=== PATIENT | female | born 1985 | race African-American/Black ===

== ENCOUNTER 2016-08-23 01:32 | Outpatient (CLI) | payer BC, MEDICAID ==
[2016-08-23 02:13] LABS: APPEARANCE,URINE SLIGHTLY-CLOUDY; BILIRUBIN,URINE NEGATIVE (NEGATIVE); GLUCOSE, URINE NEGATIVE (NEGATIVE); KETONES,URINE NEGATIVE (NEGATIVE); LEUKOCYTE ESTERASE,URINE LARGE (NEGATIVE); NITRITE,URINE NEGATIVE (NEGATIVE); PROTEIN,URINE NEGATIVE (NEGATIVE); URINE SPECIFIC GRAVITY 1.012
[2016-08-23 02:35] LABS: URINE BARBITURATES SCREEN NEGATIVE; URINE METHADONE SCREEN NEGATIVE; URINE OPIATES LOW NEGATIVE; URINE PHENCYCLIDINE SCREEN NEGATIVE
--- NOTE | 2016-08-23 04:46 | L&D Admission Assessment ---
LD ADM ASMT Datetime Report Generated by CPN: 08/23/2016 04:45 PATIENT ASSESSMENT Assessment Type: Triage (08/23/2016 01:54:Kourtney Lattibeaudeir, RN) WEIGHT Weight (lb): 150 (08/23/2016 02:47:QS system process) Weight (kg): 68.2 (08/23/2016 02:47:QS system process) PAIN Pain Scale: 3 (08/23/2016 01:54:Kourtney Lattibeaudeir, RN) Pain Presence: Intermittent (08/23/2016 01:54:Kourtney Lattibeaudeir, RN) Pain Type: Contraction (08/23/2016 01:54:Kourtney Lattibeaudeir, RN) Pain Location: Abdomen (08/23/2016 01:54:Kourtney Lattibeaudeir, RN) Pain Related to Contraction: Yes (08/23/2016 01:54:Kourtney Lattibeaudeir, RN) CONTRACTIONS Frequency (min): 2-9 (08/23/2016 02:40:Kourtney Lattibeaudeir, RN) Frequency (min): 3-8 (08/23/2016 02:15:Kourtney Lattibeaudeir, RN) Frequency (min): every 5-7 mins per pt report. (08/23/2016 01:54:Kourtney Lattibeaudeir, RN) Duration (sec): 60-120 (08/23/2016 02:40:Kourtney Lattibeaudeir, RN) Duration (sec): 60-130 (08/23/2016 02:15:Kourtney Lattibeaudeir, RN) Quality: Moderate to Strong (08/23/2016 02:40:Kourtney Goddard RN) Quality: Moderate to Strong (08/23/2016 02:15:Kourtney Goddard RN) Resting Tone [place]: Relaxed (08/23/2016 02:40:Kourtney Beauchamptibchelita RN) Resting Tone [place]: Relaxed (08/23/2016 02:15:Kourtney Lattibchelita, RN) VAGINAL EXAM Dilatation (cm): 3.0 (08/23/2016 03:32:Kourtney Goddard RN) Dilatation (cm): 3.0 (08/23/2016 02:00:Kourtney Goddard RN) Effacement (%): 80 (08/23/2016 03:32:Kourtney Goddard RN) Effacement (%): 80 (08/23/2016 02:00:Kourtney Goddard RN) Station: -2 (08/23/2016 03:32:Kourtney Goddard RN) Station: -2 (08/23/2016 02:00:Kourtney Goddard RN) Membranes Status: Intact (08/23/2016 01:54:Kourtney Goddard RN) MAY'S SCORE May's Score Dilatation (cm): 3-4 cms (08/23/2016 01:54:Kourtney Goddard RN) May's Score Effacement (%): >80_ effaced (08/23/2016 01:54:Kourtney Goddard RN) May's Score Station: minus 2 (08/23/2016 01:54:Kourtney Goddard RN) May's Score Consistency: Medium (08/23/2016:54:Kourtney Goddard RN) May's Score Position: Posterior (08/23/2016 01:54:Kourtney Goddard RN) Total May's Score: 7 (08/23/2016:54:QS system process) May's Score Text: 5-8 = Small percentage of induction failure (08/23/2016 01:54:QS system process) NEURO Level of Consciousness: Fully Conscious (08/23/2016 01:54:Kourtney Goddard RN) DTR's/Clonus: DTRs 2+; No Clonus (08/23/2016 01:54:Kourtney Goddard RN) Headache: Denies (08/23/2016 01:54:Kourtney Goddard RN) Dizziness: No (08/23/2016 01:54:Kourtney Goddard RN) Blurred Vision: Pt states she had blurred vision yesterday but not right now. (08/23/2016 01:54:Kourtney Goddard RN) Extremity Numbness/Tingling : Pt states she has some numbness in her right leg from above the knee to just below it. (08/23/2016 01:54:Kourtney Goddard RN) Extremity Movement: Full Range of Motion (08/23/2016 01:54:Kourtney Goddard RN) CARDIOVASCULAR Heart Rhythm: Regular (08/23/2016 01:54:Kourtney Goddard RN) Nailbeds: [place] (08/23/2016 01:54:Kourtney Goddard RN) Capillary Refill: Less than 3 Seconds (08/23/2016 01:54:Kourtney Goddard RN) Lower Extremities Edema: None (08/23/2016 01:54:Kourtney Goddard RN) Lower Extremities Edema Degree: None (08/23/2016 01:54:Kourtney Goddard RN) Upper Extremities Edema: None (08/23/2016 01:54:Kourtney Goddard RN) Upper Extremities Edema Degree: None (08/23/2016 01:54:Kourtney Goddard RN) Facial Edema: None (08/23/2016 01:54:Kourtney Goddard RN) RESPIRATORY Respiratory Effort: Unlabored; Regular Rhythm; Equal Expansion (08/23/2016 01:54:Kourtney Lattibeaudeir, RN) Breath Sounds, Left: Clear and Equal (08/23/2016 01:54:Kourtney Lattibeaudeir, RN) Breath Sounds, Right: Clear and Equal (08/23/2016 01:54:Kourtney Lattibeaudeir, RN) Cough Productivity: None (08/23/2016 01:54:Kourtney Lattibeaudeir, RN) GASTROINTESTINAL Nausea/Vomiting: Denies (08/23/2016 01:54:Kourtney Lattibeaudeir, RN) Bowel Patterns: Diarrhea (08/23/2016 01:54:Kourtney Lattibeaudeir, RN) Diet Type: Regular diet (08/23/2016 01:54:Kourtney Lattibeaudeir, RN) GENITOURINARY Bladder: Nondistended (08/23/2016 01:54:Kourtney Goddard RN) Frequency of Urination: No (08/23/2016 01:54:Kourtney Goddard RN) Urination Burning: No (08/23/2016 01:54:Kourtney Goddard RN) CVA Tenderness: No (08/23/2016 01:54:Kourtney Goddard RN) Vaginal Bleeding: None (08/23/2016 01:54:Kourtney Goddard RN) Vaginal Discharge Amount: None (08/23/2016 01:54:Kourtney Goddard RN) Vaginal Discharge Color: N/A (08/23/2016 01:54:Kourtney Goddard RN) Vaginal Discharge Odor: Non-Odorous (08/23/2016 01:54:Kourtney Goddard RN) Vaginal Discharge Character: None (08/23/2016 01:54:Kourtney Goddard RN) INTEGUMENTARY Skin Color: Normal for Race (08/23/2016 01:54:Kourtney Goddard RN) Skin Temperature: Warm (08/23/2016 01:54:Kourtney Goddard RN) Skin Moisture: Dry (08/23/2016 01:54:Kourtney Goddard RN) Surgical Scars: none (08/23/2016 01:54:Kourtney Goddard RN) PASQUALE SKIN ASSESSMENT Pasquale Scale Sensory Perception: No Impairment- Responds to verbal commands. Has no sensory deficit which would limit ability to feel or voice pain or discomfort (08/23/2016 01:54:Kourtney Goddard RN) Pasquale Scale Moisture: Rarely Moist- Skin is usually dry. Linen only requires changing at routine intervals (08/23/2016 01:54:Kourtney Goddard RN) Pasquale Scale Activity: Walks Frequently- Walks outside the room at least twice a day and inside room at least every 2 hours during the day. (08/23/2016 01:54:Kourtney Goddard RN) Pasquale Scale Mobility: No Limitations- Makes major and frequent changes in position without assistance (08/23/2016 01:54:Kourtney Goddard RN) Pasquale Scale Nutrition: Adequate- Eats over half of most meals. Eats a total of 4 servings of protein (meat, dairy products) each day. Occasionally will refuse a meal but will usually take a supplement if offered OR is on a tube feeding or TPN regimen which probably meets most of nutritional needs (08/23/2016 01:54:Kourtney Goddard RN) Pasquale Scale Friction and Shear: No Apparent Problem- Moves in bed and in chair independently and has sufficient muscle strength to lift up completely during move. Maintains good position in bed or chair at all times (08/23/2016 01:54:Kourtney Goddard RN) Pasquale Scale Total: 22 (08/23/2016 01:54:QS system process) Pasquale Scale Risk: No Risk of Pressure Ulcer Noted at this Time (08/23/2016 01:54:QS system process) SUPPORT Family Support: Family supportive (08/23/2016 01:54:Kourtney Lattibeaudeir, RN) Emotional State: Calm/Relaxed (08/23/2016 01:54:Kourtney Lattibeaudeir, RN) SAFETY [place] Within Reach: Yes (08/23/2016 01:54:Kourtney Lattibeaudeir, RN) Side Rails Up: Yes (08/23/2016 01:54:Kourtney Lattibeaudeir, RN) Bed Wheels Locked: Yes (08/23/2016 01:54:Kourtney Lattibeaudeir, RN) Arm Bands Present: Yes (08/23/2016 01:54:Kourtney Lattibeaudeir, RN) Isolation: [place] (08/23/2016 01:54:Kourtney Lattibeaudeir, RN) FALL SCREEN Fall Risk History of Falling: (0) No (08/23/2016 01:54:Kourtney Goddard RN) Fall Risk Secondary Diagnosis: (0) No (08/23/2016 01:54:Kourtney Goddard RN) Fall Risk Ambulatory Aid: (0) None/Bedrest/Wheelchair/Nurse Assist (08/23/2016 01:54:Kourtney Goddard RN) Fall Risk IV Therapy: (0) No (08/23/2016 01:54:Kourtney Goddard RN) Fall Risk Gait: (0) Normal/Bedrest/Immobile (08/23/2016 01:54:Kourtney Goddard RN) Fall Risk Mental Status: (0) Oriented to Own Ability (08/23/2016 01:54:Kourtney Goddard RN) Fall Risk Score: 0 (08/23/2016 01:54:QS system process) Fall Risk Score Definition: No Risk: No action required (08/23/2016 01:54:QS system process) BABY A FHR Baseline Rate (bpm) Baby A: 135 (08/23/2016 02:40:Kourtney Goddard RN) FHR Baseline Rate (bpm) Baby A: 135 (08/23/2016 02:15:Kourtney Goddard RN) Variability Baby A: Moderate 6-25 bpm (08/23/2016 02:40:Kourtney Goddard RN) Variability Baby A: Moderate 6-25 bpm (08/23/2016 02:15:Kourtney Goddard RN) Accelerations Baby A: 15X15 (08/23/2016 02:40:Kourtney Goddard RN)
--- NOTE | 2016-08-23 04:46 | Antepartum Discharge Summary ---
Antepartum DC Datetime Report Generated by CPN: 08/23/2016 04:45 DIET/ACTIVITY/RESTRICTIONS Diet: Regular (08/23/2016 03:49:Kourtney Lattibeaudeir, RN) Activity: Normal Activity (08/23/2016 03:49:Kourtney Lattibeaudeir, RN) TEACHING/INSTRUCTIONS/REFERRALS Instructions Given To: Patient (08/23/2016 03:49:Kourtney Lattibeaudeir, RN) Instructions Understood: Patient Verbalized Understanding; Support Person Verbalized Understanding (08/23/2016 03:49:Kourtney Goddard RN) Referrals: None (08/23/2016 03:49:Kourtney Goddard RN) Educational Materials- Other: labor process and kick count care notes. (08/23/2016 03:49:Kourtney Goddard RN) DISCHARGE INFORMATION Discharged AMA: No (08/23/2016 03:49:Kourtney Goddard RN) Discharge Date/Time: 08/23/2016 03:49 (08/23/2016 03:49:Kourtney Goddard RN) Discharged To: Home (08/23/2016 03:49:Kourtney Goddard RN) Discharge Provider Name: Dr. Krishnamurthy (08/23/2016 03:49:Kourtney Goddard RN) Accompanied By: Family member (08/23/2016 03:49:Kourtney Goddard RN) Discharge Method: Ambulatory (08/23/2016 03:49:Kourtney Goddard RN) Condition: Stable (08/23/2016 03:49:Kourtney Goddard RN) FOLLOW UP INFORMATION Follow Up With: [facility] (08/23/2016 03:49:Kourtney Goddard RN) Follow Up On: As Scheduled (08/23/2016 03:49:Kourtney Goddard RN) Follow Up Phone Number: [facility] - (08/23/2016 03:49:Kourtney Goddard RN)
--- NOTE | 2016-08-23 04:46 | L&D Discharge Summary ---
OB Discharge Summary Datetime Report Generated by CPN: 08/23/2016 04:45 DISCHARGE DIAGNOSIS Diagnosis/Symptoms: False Labor Gestation: 38.0 Number of Babies in Womb: 1 Parity: 1 DIET/ACTIVITY/RESTRICTIONS Diet: Regular Activity: Normal Activity TEACHING/INSTRUCTIONS/REFERRALS Instructions Given To: Patient Instructions Understood: Patient Verbalized Understanding; Support Person Verbalized Understanding Referrals: None Educational Materials- Other: labor process and kick count care notes. DISCHARGE INFORMATION Discharged AMA: No Discharge Date/Time: 08/23/2016 03:49 Discharged To: Home Discharge Provider Name: Krishnamurthy Accompanied By: Family member Discharge Method: Ambulatory Condition: Stable FOLLOW UP INFORMATION Follow Up With: [facility] Follow Up On: As Scheduled Follow Up Phone Number: [facility] - Comments: Patient educated on dehydration in . Patient advised to drink 3-4 pitchers of water per day
--- NOTE | 2016-08-23 04:46 | L&D General Admission ---
General Admit Datetime Report Generated by CPN: 08/23/2016 04:45 INFORMATION Para: 1 (08/23/2016 03:49:Kourtney Lattibeaudeir, RN) Baby, Number in Womb: 1 (08/23/2016 03:49:Kourtney Lattibeaudeir, RN) CARE Height (in): 64 (08/23/2016 02:47:QS system process) ALLERGIES Medication Allergies: No Known Allergies (08/23/2016) (08/23/2016 02:09:QS system process)
--- NOTE | 2016-08-23 04:46 | L&D Current Admission ---
Current Admit Datetime Report Generated by CPN: 08/23/2016 04:45 ADMISSION INFORMATION Chief Complaint: Contractions (08/23/2016 01:54:FRANCISCO Randhawa
--- NOTE | 2016-08-23 04:46 | L&D Flow Sheet ---
LD Flowsheet Datetime Report Generated by CPN: 08/23/2016 04:45 Datetime: 08/23/2016 03:49 Communication Additional Nursing Comments: Pt ambulated off unit accompanied by family member. (Kourtney Lattibeaudeir, RN) Datetime: 08/23/2016 03:41 Teaching Instructional Method: Verbal; Written; Patient Instructed; Family/Support Person Instructed (Kourtney Goddard RN) Plan of Care: Labor (Kourtney Goddard RN) Related: Common Discomforts of (Kourtney Goddard RN) Teaching Comments: Patient given labor process and kick count care notes. Pt advised to keep appt as scheduled on in office. Pt also advised to f/u with L_D or physician's office as needed. Pt verbalized understanding and denies any questions. (Kourtney Goddard RN) Datetime: 08/23/2016 03:35 Communication Comments: Informed Dr. Krishnamurthy of repeat SVE. Received orders to discharge pt home. May offer patient Vistaril 50 mg PO prior to discharge. Keep appts as scheduled and f/u in L_D or physician's office as needed. (Kourtney Goddard RN) Datetime: 08/23/2016 03:32 Vaginal Exam Dilatation (cm): 3.0 (Kourtney Goddard RN) Effacement (%): 80 (Kourtney Goddard RN) Station: -2 (Kourtney Goddard RN) Exam by: Damon Goddard RN (Kourtney Goddard RN) Datetime: 08/23/2016 02:40 Uterine Activity Monitor Mode: External (Kourtney Lattibeaudeir, RN) Frequency (min): 2-9 (Kourtney Lattibeaudeir, RN) Quality: Moderate to Strong (Kourtney Lattibeaudeir, RN) Duration (sec): 60-120 (Kourtney Lattibeaudeir, RN) Resting Tone (Palpate): Relaxed (Kourtney Lattibeaudeir, RN) Assessment A Monitor Mode: External US (Kourtney Lattibeaudeir, RN) FHR Baseline Rate : 135 (Kourtney Lattibeaudeir, RN) Variability: Moderate 6-25 bpm (Kourtney Lattibeaudeir, RN) Accelerations: 15X15 (Kourtney Lattibeaudeir, RN) Comments: Monitors removed for ambulation. Pt advised to stay on 2nd floor. Advised her to ambulate until approx 0330. Will re-check SVE at that time. Pt verbalized understanding. (Kourtney Lattibeaudeir, RN) Datetime: 08/23/2016 02:27 Communication Comments: Informed Dr. Krishnamurthy of SVE, pt complaint of contractions, and urine results. (Kourtney Lattibeaudeir, RN) Datetime: 08/23/2016 02:15 Uterine Activity Monitor Mode: External (Kourtney Quynhtibchelita, RN) Frequency (min): 3-8 (Kourtney Goddard, RN) Quality: Moderate to Strong (Kourtney Lattibeaudeir, RN) Duration (sec): 60-130 (Kourtney Lattibeaudeir, RN) Resting Tone (Palpate): Relaxed (Kourtney Lattibeaudeir, RN) Assessment A Monitor Mode: External US (Kourtney Lattibeaudeir, RN) FHR Baseline Rate : 135 (Kourtney Lattibeaudeir, RN) Variability: Moderate 6-25 bpm (Kourtney Lattibeaudeir, RN) Datetime: 08/23/2016 02:00 Vaginal Exam Dilatation (cm): 3.0 (Kourtney Goddard, RN) Effacement (%): 80 (Kourtney Goddard RN) Station: -2 (Kourtney Goddard RN) Exam by: Damon Goddard RN (Kourtney Goddard, RN) Vaginal Exam Comments: Ballot[place] (Kourtney Goddard, RN) Datetime: 08/23/2016 01:54 Vital Signs Stage of : Antepartum (Kourtney Goddard, RN) NBP Sys/Hallie/Mean (mmHg): 116 (QS system process) : 82 (QS system process) : 94 (QS system process) Pulse: 75 (QS system process) Frequency (min): every 5-7 mins per pt report. (Kourtney Goddard, RN) Pain Pain Scale: 3 (Kourtney Lattibeaudeir, RN) Pain Presence: Intermittent (Kourtney Lattibeaudeir, RN) Pain Type: Contraction (Kourtney Lattibeaudeir, RN) Pain Location: Abdomen (Kourtney Lattibeaudeir, RN) Pain Coping: Breathing Through Contractions (Kourtney Lattibeaudeir, RN) Membrane Status: Intact (Kourtney Lattibeaudeir, RN) Vaginal Bleeding: None (Kourtney Lattibeaudeir, RN) Foster's Score Dilatation (cm): 3-4 cms (Kourtney Lattibeaudeir, RN) Effacement: >80_ effaced (Kourtney Lattibeaudeir, RN) Station: minus 2 (Kourtney Lattibeaudeir, RN) Consistency: Medium (Kourtney Lattibeaudeir, RN) Position: Posterior (Kourtney Lattibeaudeir, RN) Total Foster's Score: 7 (QS system process) : 5-8 = Small percentage of induction failure (QS system process) Maternal Assessment Level of Consciousness: Fully Conscious (Kourtney Goddard RN) DTR's/Clonus: DTRs 2+; No Clonus (Kourtney Goddard RN) Headache: Denies (Kourtney Goddard RN) Breath Sounds, Left: Clear and Equal (Kourtney Goddard RN) Breath Sounds, Right: Clear and Equal (Kourtney Goddard RN) Nausea/Vomiting: Denies (Kourtney Goddard RN) LaborFlag: Antepartum (QS system process)
--- NOTE | 2016-08-26 10:01 | Non Stress Test Report ---
Non Stress Test Datetime Report Generated by CPN: 08/26/2016 10:01 DEMOGRAPHIC Test Number: 2 EGA NST: 38.1 EGA NST: 33.4 INDICATION Indication for Study: Ordered by Provider Indication for Study: Other Indication for Study (NST) Other: Labor Check MONITORING Monitor Explained: Monitor Explained; Test Explained; Patient Verbalized Understanding Monitor Explained: Monitor Explained; Test Explained; Patient Verbalized Understanding Time on Monitor: 08/23/2016 01:52 Time on Monitor: 07/22/2016 15:16 Time off Monitor: 08/23/2016 02:40 Time off Monitor: 07/22/2016 17:06 NST Duration: 48 NST Duration: 110 NST INTERVENTIONS NST Interventions: PO Hydration; Reposition Patient NST Interventions: PO Hydration Physician Notified NST: Dr. Krishnamurthy Physician Notified NST: Dr. Lubin BABY A: [id number] BABY A Movement : Present Movement : Present Contraction Frequency : 2-9 Contraction Frequency : irregular FHR Baseline : 135 FHR Baseline : 135 Accelerations : 15X15 Accelerations : 15X15 Decelerations : None Variability : Moderate 6-25bpm Variability : Moderate 6-25bpm NST Review: Meets Criteria for Reactive NST NST Review: Meets Criteria for Reactive NST NST Review and Verified By : MIREILLE Miller NST Review and Verified By : Jorge Gordon RN NST Results: Reactive NST Results: Reactive NST REPORT Report Trigger: Send Report
== END 2016-08-23 03:49 | disposition home or self-care (01) ==
LOC: LC 01:32
PROVIDERS: ATTEND Obstetrics & Gynecology
PROC: 4A1HXCZ Monitoring of Products of Conception, Cardiac Rate, External Approach (ICD-10-PCS; principal; 2016-08-23)
DX: O47.1 False labor at or after 37 completed weeks of gestation (principal); Z3A.38 38 weeks gestation of pregnancy
CPT/HCPCS: 59025; 80307; 81005

== ENCOUNTER 2016-08-26 10:06 | Inpatient (IN) | payer BC, MEDICAID ==
[2016-08-26 10:50] LABS: APPEARANCE,URINE SLIGHTLY-CLOUDY; BILIRUBIN,URINE NEGATIVE (NEGATIVE); GLUCOSE, URINE NEGATIVE (NEGATIVE); KETONES,URINE TRACE mg/dL (NEGATIVE); LEUKOCYTE ESTERASE,URINE LARGE (NEGATIVE); NITRITE,URINE NEGATIVE (NEGATIVE); PROTEIN,URINE NEGATIVE (NEGATIVE); URINE SPECIFIC GRAVITY 1.004; UROBILINOGEN,URINE NEGATIVE mg/dL (<2.0)
[2016-08-26 10:59] LABS: AMNISURE (ROM) NEGATIVE (NEGATIVE)
[2016-08-26 11:05] LABS: URINE BARBITURATES SCREEN NEGATIVE; URINE METHADONE SCREEN NEGATIVE; URINE OPIATES LOW NEGATIVE; URINE PHENCYCLIDINE SCREEN NEGATIVE
--- NOTE | 2016-08-26 12:01 | L&D Flow Sheet ---
LD Flowsheet Datetime Report Generated by CPN: 08/26/2016 12:00 Datetime: 08/26/2016 11:58 NBP Sys/Hallie/Mean (mmHg): 103 (QS system process) : 76 (QS system process) : 86 (QS system process) Pulse: 85 (QS system process) LaborFlag: Antepartum (QS system process) Datetime: 08/26/2016 11:57 Contraction Comments: TOCO referenced. (Nevin Gordon, RN) Datetime: 08/26/2016 11:10 Comments: Monitors removed. Pt. up to ambulate per H. Jorge L, CNM. (Nevin Gordon, RN) Datetime: 08/26/2016 11:06 NBP Sys/Hallie/Mean (mmHg): 99 (QS system process) : 66 (QS system process) : 78 (QS system process) Pulse: 78 (QS system process) LaborFlag: Antepartum (QS system process) Datetime: 08/26/2016 11:01 Monitor Mode: External; Palpation (Nevin Gordon, RN) Frequency (min): 2-7 (Nevin Gordon RN) Quality: Mild (Nevin Gordon RN) Duration (sec): 60-80 (Nevin Gordon RN) Resting Tone (Palpate): Relaxed (Nevin Gordon RN) Monitor Mode: External US (Nevin Gordon RN) FHR Baseline Rate : 130 (Nevin Gordon RN) Variability: Moderate 6-25 bpm (Nevin Gordon RN) Accelerations: 15X15 (Nevin Gordon RN) Decelerations: Early; Variable (Nevin Gordon RN) Communication: Provider Orders Received; Call/Page Placed to Provider (Nevin Grodon RN) Provider Notified (Name): Lucian Coats CNM (Nevin Gordon RN) Communication Comments: Notified of fhts, ctx, labs, and v/s. Received orders to ambulate for 1 hour and recheck cervix. (Nevin Gordon RN) Datetime: 08/26/2016 10:33 Dilatation (cm): 3.0 (Nevin Gordon RN) Effacement (%): 80 (Nevin Gordon RN) Station: -1 (Nevin Gordon RN) Exam by: Jorge Gordon RN (Nevin Gordon RN) Datetime: 08/26/2016 10:31 NBP Sys/Hallie/Mean (mmHg): 109 (QS system process) : 77 (QS system process) : 88 (QS system process) Pulse: 77 (QS system process) LaborFlag: Antepartum (QS system process) Datetime: 08/26/2016 10:29 Temperature (F): 98.1 (Nevin Gordon, RN) Temperature (C): 36.7 (QS system process) LaborFlag: Antepartum (QS system process) Datetime: 08/26/2016 10:28 Comments: Monitors applied, explained to pt. (Nevin Gordon, RN) Patient Position/Activity: Right Lateral (Nevin Gorodn, RN) Datetime: 08/26/2016 10:16 Frequency (min): q 6-7 min (Nevin Gordon RN) Pain Scale: 4 (Nevin Gordon RN) Pain Presence: Intermittent (Nevin Gordon RN) Pain Type: Contraction (Nevin Gordon RN) Pain Location: Abdomen (Nevin Gordon RN) Pain Goal: 0 (Nevin Gordon RN) Pain Coping: Talking Through Contractions (Nevin Gordon RN) Vaginal Bleeding: Normal Show (Nevin Gordon RN) Level of Consciousness: Fully Conscious (Nevin Gordon RN) DTR's/Clonus: DTRs 2+; No Clonus (Nevin Gordon RN) Headache: Denies (Nevin Gordon RN) Breath Sounds, Left: Clear and Equal (Nevin Gordon RN) Breath Sounds, Right: Clear and Equal (Nevin Gordon RN) Nausea/Vomiting: Denies (Nevin Gordon RN) RUQ Epigastric Pain: Denies (Nevin Gordon RN) LaborFlag: Antepartum (QS system process)
[2016-08-26] MEDS ORDERED: RINGERS SOLUTION,LACTATED 1,000 ML IV ONE (12:25)
[2016-08-26 13:44] LABS: ABSOLUTE EOSINOPHILS # (AUTO) 0.1 10^3/uL (0.0-0.6); ABSOLUTE LYMPHOCYTES (AUTO) 1.6 10^3/uL (0.5-4.7); ABSOLUTE MONOCYTES (AUTO) 0.7 10^3/uL (0.1-1.4); ABSOLUTE NEUT (AUTO) 6.7 10^3/uL (1.7-8.2); BASOPHILS % (AUTO) 0.3 % (0-2); EOSINOPHILS % (AUTO) 0.6 % (0-6); HEMOGLOBIN 11.8 g/dL (12.0-15.5); HGB HCT DIFFERENCE -0.6; LYMPHOCYTES % (AUTO) 17.6 % (13-45); MEAN CORPUSCULAR HEMOGLOBIN 29.2 pg (27.0-33.4); MEAN CORPUSCULAR HGB CONC 32.8 g/dL (32.0-36.0); MEAN CORPUSCULAR VOLUME 89 fl (80-97); RED BLOOD COUNT 4.05 10^6/uL (3.72-5.28); RED CELL DISTRIBUTION WIDTH 14.9 % (11.5-14.0); SEGMENTED NEUTROPHILS % (AUTO) 73.5 % (42-78); WHITE BLOOD COUNT 9.2 10^3/uL (4.0-10.5)
[2016-08-26 13:46] LABS: PLATELET ESTIMATE 108 10^3/uL (150-450)
--- NOTE | 2016-08-26 14:01 | L&D Flow Sheet ---
LD Flowsheet Datetime Report Generated by CPN: 08/26/2016 14:00 Datetime: 08/26/2016 13:33 Patient Position/Activity: Right Lateral (Nevin Gordon RN) Communication: RN at Bedside (Nevin Gordon, FABRIZIO) Datetime: 08/26/2016 13:30 Monitor Mode: External; Palpation (Nevin Gordon, RN) Frequency (min): 2-6 (Nevin Gordon RN) Quality: Mild (Nevin Gordon RN) Duration (sec): 50-90 (Nevin Gordon, RN) Resting Tone (Palpate): Relaxed (Nevin Gordon, RN) Monitor Mode: External US (Nevin Gordon, RN) FHR Baseline Rate : 135 (Nevin Gordon, RN) Variability: Moderate 6-25 bpm (Nevin Gordon, RN) Accelerations: 15X15 (Nevin Gordon, RN) Decelerations: Early; Variable (Nevin Gordon, RN) Datetime: 08/26/2016 13:00 Monitor Mode: External; Palpation (Nevin Gordon, RN) Frequency (min): 3-6 (Nevin Gordon, RN) Quality: Mild (Nevin Gordon, RN) Duration (sec): 40-80 (Nevin Gordon, RN) Resting Tone (Palpate): Relaxed (Nevin Gordon, RN) Monitor Mode: External US (Nevin Gordon, RN) FHR Baseline Rate : 135 (Nevin Gordon, RN) Variability: Moderate 6-25 bpm (Nevin Gordon, RN) Accelerations: 15X15 (Nevin Gordon, RN) Decelerations: Variable (Nevin Gordon, RN) Datetime: 08/26/2016 12:41 IV/Blood Work: IV Started (Sandra Jones, FABRIZIO) Datetime: 08/26/2016 12:29 Monitor Mode: External; Palpation (Nevin Gordon, RN) Frequency (min): 2-7 (Nevin Gordon, RN) Quality: Mild (Nevin Gordon, RN) Duration (sec): 40-80 (Nevin Gordon, RN) Resting Tone (Palpate): Relaxed (Nevin Gordon, RN) Monitor Mode: External US (Nevin Gordon, RN) FHR Baseline Rate : 135 (Nevin Gordon, RN) Variability: Moderate 6-25 bpm (Nevin Gordon, RN) Accelerations: 15X15 (Nevin Gordon, RN) Decelerations: Variable (Nevinelizabeth Gordon, RN) Datetime: 08/26/2016 12:03 Communication: Provider Orders Received; Call/Page Placed to Provider (Sandra Jones RN) Provider Notified (Name): Dr. Fuentes (Sandra Jones RN) Communication Comments: Notified of fhts, ctx, labs, v/s, and SVE. Received orders to admit to L_D. (Sandra Jones RN) Datetime: 08/26/2016 12:01 Dilatation (cm): 3.5 (Sandra Jones RN) Effacement (%): 80 (Sandra Jones RN) Station: -1 (Sandra Jones RN) Exam by: Jorge Gordon RN (Sandra Jones, FABRIZIO)
[2016-08-26] MEDS ORDERED: LIDOCAINE 1% INJ-PF (10 MG/ML) 30 ML SDV ONE (14:20)
[2016-08-26] MEDS ORDERED: MISOPROSTOL 0.2 MG TABLET ONE (14:20)
[2016-08-26] MEDS ORDERED: OXYTOCIN/NORMAL SALINE 0 UNIT/0 ML RTUINJ ONE (14:20)
[2016-08-26] MEDS ORDERED: FENTANYL CITRATE INJ/PF 100 MCG/2 ML AMPUL ONE ×2 (15:17→21:02)
[2016-08-26] MEDS ORDERED: FENTANYL/BUPIVACAINE/NS/PF 200 MCG/100 ML RTUINJ EPI ONE (15:17)
[2016-08-26] MEDS ORDERED: PHENYLEPHRINE HCL INJ/PF 10 MG/1 ML SDV ONE (15:17)
[2016-08-26] MEDS ORDERED: EPHEDRINE SULFATE INJ 50 MG/1 ML AMPULE ONE (15:17)
[2016-08-26] MEDS ORDERED: BUPIVACAINE HCL 0.25 % INJ/PF (2.5 MG/1 ML) 30 ML VIAL ONE (15:18)
--- NOTE | 2016-08-26 16:01 | L&D Flow Sheet ---
LD Flowsheet Datetime Report Generated by CPN: 08/26/2016 16:00 Datetime: 08/26/2016 15:59 NBP Sys/Hallie/Mean (mmHg): 110 (QS system process) : 71 (QS system process) : 85 (QS system process) Pulse: 98 (QS system process) Epidural Procedure: Loading Dose (Nevin Gordon RN) LaborFlag: Antepartum (QS system process) Datetime: 08/26/2016 15:58 NBP Sys/Hallie/Mean (mmHg): 113 (QS system process) NBP Sys/Hallie/Mean (mmHg): 116 (QS system process) : 74 (QS system process) : 75 (QS system process) : 88 (QS system process) : 90 (QS system process) Pulse: 94 (QS system process) Pulse: 93 (QS system process) Pulse: 91 (QS system process) SpO2 (%): 100 (QS system process) LaborFlag: Antepartum (QS system process) Datetime: 08/26/2016 15:57 Epidural Procedure: Cath Placed (Nevin Gordon RN) Epidural Procedure: Test Dose (Nevin Gordon RN) Datetime: 08/26/2016 15:53 Pulse: 92 (QS system process) SpO2 (%): 100 (QS system process) Procedure Verify: Correct Patient Identity; Correct Side and Site are Marked; Accurate Procedure Consent Form; Agreement on Procedure to be Done; Correct Patient Position (Nevin Gordon RN) Anesthesia Plans: Epidural (Nevin Gordon RN) LaborFlag: Antepartum (QS system process) Datetime: 08/26/2016 15:47 Pulse: 88 (QS system process) SpO2 (%): 100 (QS system process) LaborFlag: Antepartum (QS system process) Datetime: 08/26/2016 15:46 Contraction Comments: TOCO referenced. (Nevin Gordon, RN) Datetime: 08/26/2016 15:42 Pulse: 89 (QS system process) SpO2 (%): 100 (QS system process) LaborFlag: Antepartum (QS system process) Datetime: 08/26/2016 15:39 IV/Blood Work: New IV Bag Hung (Nevin Gordon, RN) Datetime: 08/26/2016 15:37 Pulse: 95 (QS system process) SpO2 (%): 100 (QS system process) Communication: Call/Page Placed to Provider (Nevin Gordon RN) Provider Notified (Name): Dr Knightshed (Nevin Gordon RN) Communication Comments: Notified of pt. request for epidural. (Nevin Gordon RN) LaborFlag: Antepartum (QS system process) Datetime: 08/26/2016 15:36 Communication Comments: Call placed to Dr Nunez to notify of pt request for epidural. (Della Sahni RN) Datetime: 08/26/2016 15:30 Monitor Mode: External; Palpation (Nevin Gordon RN) Frequency (min): 3-7 (Nevin Gordon RN) Quality: Moderate (Nevin Gordon RN) Duration (sec): 80-110 (Nevin Gordon RN) Resting Tone (Palpate): Relaxed (Nevin Gordon RN) Monitor Mode: External US (Nevin Gordon RN) FHR Baseline Rate : 145 (Nevin Gordon RN) Variability: Moderate 6-25 bpm (Nevin Gordon RN) Accelerations: 15X15 (Nevin Gordon RN) Decelerations: Early; Variable (Nevin Gordon RN) Pain Scale: 4 (Nevin Gordon RN) Pain Presence: Intermittent (Nevin Gordon RN) Pain Type: Contraction (Nevin Gordon RN) Pain Location: Abdomen (Nevin Gordon RN) Pain Goal: 0 (Nevin Gordon RN) Pain Assessment Comments: Epidural requested. (Nevin Gordon RN) LaborFlag: Antepartum (QS system process) Datetime: 08/26/2016 15:00 Monitor Mode: External; Palpation (Nevin Gordon, RN) Frequency (min): 5-7 (Nevin Gordon, RN) Quality: Moderate (Nevin Gordon, RN) Duration (sec): 60-80 (Nevin Gordon, RN) Resting Tone (Palpate): Relaxed (Nevin Gordon, RN) Monitor Mode: External US (Nevin Gordon, RN) FHR Baseline Rate : 140 (Nevin Gordon, RN) Variability: Moderate 6-25 bpm (Nevin Gordon, RN) Accelerations: 15X15 (Nevin Gordon, RN) Decelerations: Early; Variable (Nevin Gordon, RN) Datetime: 08/26/2016 14:30 Monitor Mode: External; Palpation (Nevin Gordon, RN) Frequency (min): 2-7 (Nevin Gordon, RN) Quality: Moderate (Nevin Gordon, RN) Duration (sec): 60-90 (Nevin Gordon, RN) Resting Tone (Palpate): Relaxed (Nevin Gordon, RN) Monitor Mode: External US (Nevin Gordon, RN) FHR Baseline Rate : 135 (Nevin Gordon, RN) Variability: Moderate 6-25 bpm (Nevin Gordon, RN) Accelerations: 15X15 (Nevin Gordon, RN) Decelerations: Early; Variable (Nevin Gordon, RN) Datetime: 08/26/2016 14:13 Dilatation (cm): 5.0 (Nevin Gordon RN) Exam by: Dr. Fuentes (Nevin Gordon RN) Membrane Status: Ruptured (Nevin Gordon RN) Membranes Ruptured Date/Time: 08/26/2016 14:13 (Nevin Gordon RN) Membranes Rupture Method: Artificial (Nevin Gordon RN) Amniotic Fluid Color: Clear (Nevin Gordon RN) Amniotic Fluid Amount: Small (Nevin Gordon RN) Amniotic Fluid Odor: Normal (Nevin Gordon RN) Datetime: 08/26/2016 14:08 I/O Interventions: Up to BR (Nevin Gordon RN) Datetime: 08/26/2016 14:00 Monitor Mode: External; Palpation (Nevin Gordon RN) Frequency (min): 4-5 (Nevin Gordon RN) Quality: Mild/Moderate (Nevin Gordon RN) Duration (sec): 60-90 (Nevin Gordon RN) Resting Tone (Palpate): Relaxed (Nevin Gordon RN) Monitor Mode: External US (Nevin Gordon RN) FHR Baseline Rate : 135 (Nevin Gordon RN) Variability: Moderate 6-25 bpm (Nevin Gordon RN) Accelerations: 15X15 (Nevin Gordon RN) Decelerations: Early; Variable (Nevin Gordon RN)
[2016-08-26] MEDS ORDERED: OXYTOCIN/NORMAL SALINE 20 UNIT/1,000 ML RTUINJ ONE (16:29)
[2016-08-26] MEDS ORDERED: OXYTOCIN/NORMAL SALINE 1,000 ML IV PRN ×2 (16:33→19:47)
[2016-08-26] MEDS: RINGERS SOLUTION,LACTATED 1,000 ML IV PRN ×2 (16:52→16:53)
--- NOTE | 2016-08-26 18:01 | L&D Flow Sheet ---
LD Flowsheet Datetime Report Generated by CPN: 08/26/2016 18:00 Datetime: 08/26/2016 17:57 NBP Sys/Hallie/Mean (mmHg): 117 (QS system process) : 77 (QS system process) : 92 (QS system process) Pulse: 77 (QS system process) LaborFlag: Antepartum (QS system process) Datetime: 08/26/2016 17:51 NBP Sys/Hallie/Mean (mmHg): 111 (QS system process) : 77 (QS system process) : 90 (QS system process) Pulse: 95 (QS system process) LaborFlag: Antepartum (QS system process) Datetime: 08/26/2016 17:46 NBP Sys/Hallie/Mean (mmHg): 116 (QS system process) : 78 (QS system process) : 91 (QS system process) Pulse: 81 (QS system process) LaborFlag: Antepartum (QS system process) Datetime: 08/26/2016 17:41 NBP Sys/Hallie/Mean (mmHg): 111 (QS system process) : 69 (QS system process) : 85 (QS system process) Pulse: 71 (QS system process) LaborFlag: Antepartum (QS system process) Datetime: 08/26/2016 17:36 NBP Sys/Hallie/Mean (mmHg): 102 (QS system process) : 64 (QS system process) : 78 (QS system process) Pulse: 78 (QS system process) LaborFlag: Antepartum (QS system process) Datetime: 08/26/2016 17:31 NBP Sys/Hallie/Mean (mmHg): 109 (QS system process) : 74 (QS system process) : 87 (QS system process) Pulse: 59 (QS system process) LaborFlag: Antepartum (QS system process) Datetime: 08/26/2016 17:30 Monitor Mode: External; Palpation (Nevin Gordon RN) Frequency (min): 2-3 (Nevin Gordon RN) Quality: Moderate (Nevin Gordon RN) Duration (sec): 60-80 (Nevin Gordon RN) Resting Tone (Palpate): Relaxed (Nevin Gordon, RN) Datetime: 08/26/2016 17:26 NBP Sys/Hallie/Mean (mmHg): 104 (QS system process) : 67 (QS system process) : 81 (QS system process) Pulse: 62 (QS system process) LaborFlag: Antepartum (QS system process) Datetime: 08/26/2016 17:24 Patient Care Comments: O2 10L via nonrebreather administered. (Nevin Gordon, RN) Datetime: 08/26/2016 17:21 NBP Sys/Hallie/Mean (mmHg): 112 (QS system process) : 66 (QS system process) : 82 (QS system process) Pulse: 78 (QS system process) Patient Position/Activity: Left Tilt; Tailors (Nevin Gordon RN) LaborFlag: Antepartum (QS system process) Datetime: 08/26/2016 17:17 NBP Sys/Hallie/Mean (mmHg): 82 (QS system process) : 55 (QS system process) : 62 (QS system process) Pulse: 71 (QS system process) LaborFlag: Antepartum (QS system process) Datetime: 08/26/2016 17:16 Pitocin (milliunit): Pitocin Discontinued (Nevin Gordon RN) Datetime: 08/26/2016 17:15 Monitor Mode: External; Palpation (Nevin Gordon, RN) Frequency (min): 7-9 (Nevin Gordon, RN) Quality: Moderate (Nevin Gordon, RN) Duration (sec): 60-90 (Nevin Gordon, RN) Resting Tone (Palpate): Relaxed (Nevin Gordon, RN) Monitor Mode: External US (Nevin Gordon, RN) FHR Baseline Rate : 135 (Nevin Gordon, RN) Variability: Moderate 6-25 bpm (Nevin Gordon, RN) Accelerations: 15X15 (Nevin Gordon, RN) Decelerations: Prolonged (Nevin Gordon, RN) Datetime: 08/26/2016 17:11 NBP Sys/Hallie/Mean (mmHg): 108 (QS system process) : 73 (QS system process) : 85 (QS system process) Pulse: 76 (QS system process) LaborFlag: Antepartum (QS system process) Datetime: 08/26/2016 17:08 Patient Position/Activity: Right Extreme (Nevin Gordon, RN) Datetime: 08/26/2016 17:06 NBP Sys/Hallie/Mean (mmHg): 111 (QS system process) : 71 (QS system process) : 86 (QS system process) Pulse: 81 (QS system process) LaborFlag: Antepartum (QS system process) Datetime: 08/26/2016 17:05 Pitocin (milliunit): Pitocin Increased to (milliunits) @ 4 (Nevin Gordon, RN) Datetime: 08/26/2016 17:01 NBP Sys/Hallie/Mean (mmHg): 108 (QS system process) : 68 (QS system process) : 83 (QS system process) Pulse: 75 (QS system process) LaborFlag: Antepartum (QS system process) Datetime: 08/26/2016 17:00 Monitor Mode: External; Palpation (Nevin Gordon, RN) Frequency (min): 2-6 (Nevin Gordon, RN) Quality: Moderate (Nevin Gordon, RN) Duration (sec): 60-80 (Nevin Gordon, RN) Resting Tone (Palpate): Relaxed (Nevin Gordon, RN) Monitor Mode: External US (Nevin Gordon, RN) FHR Baseline Rate : 140 (Nevin Gordon, RN) Variability: Moderate 6-25 bpm (Nevin Gordon, RN) Accelerations: 15X15 (Nevin Gordon, RN) Decelerations: Prolonged (Nevin Gordon, RN) Datetime: 08/26/2016 16:56 NBP Sys/Hallie/Mean (mmHg): 102 (QS system process) : 60 (QS system process) : 76 (QS system process) Pulse: 96 (QS system process) LaborFlag: Antepartum (QS system process) Datetime: 08/26/2016 16:53 Patient Position/Activity: Peanut Ball (Nevin Gordon, RN) Datetime: 08/26/2016 16:52 NBP Sys/Hallie/Mean (mmHg): 108 (QS system process) : 68 (QS system process) : 82 (QS system process) Pulse: 80 (QS system process) LaborFlag: Antepartum (QS system process) Datetime: 08/26/2016 16:51 Patient Position/Activity: Right Extreme (Nevin Gordon, RN) Datetime: 08/26/2016 16:48 Patient Position/Activity: Left Lateral (Nevin Gordon, RN) Datetime: 08/26/2016 16:47 NBP Sys/Hallie/Mean (mmHg): 108 (QS system process) : 69 (QS system process) : 83 (QS system process) Pulse: 83 (QS system process) LaborFlag: Antepartum (QS system process) Datetime: 08/26/2016 16:45 Monitor Mode: External; Palpation (Nevin Gordon RN) Frequency (min): 2-8 (Nevin Gordon RN) Quality: Moderate (Nevin Gordon RN) Duration (sec): 60-90 (Nevin Gordon RN) Resting Tone (Palpate): Relaxed (Nevin Gordon RN) Monitor Mode: External US (Nevin Gordon RN) FHR Baseline Rate : 150 (Nevin Gordon RN) Variability: Moderate 6-25 bpm (Nevin Gordon RN) Decelerations: Prolonged (Nevin Gordon RN) Actions for Decelerations: Side to Side (Della Sahni RN) Patient Care Comments: peanut ball removed (Della Sahni RN) Datetime: 08/26/2016 16:43 Temperature (F): 98.4 (Nevin Gordon RN) Temperature (C): 36.9 (QS system process) LaborFlag: Antepartum (QS system process) Datetime: 08/26/2016 16:41 NBP Sys/Hallie/Mean (mmHg): 96 (QS system process) : 55 (QS system process) : 68 (QS system process) Pulse: 75 (QS system process) LaborFlag: Antepartum (QS system process) Datetime: 08/26/2016 16:40 Pitocin (milliunit): Pitocin Started (milliunits) @ 2 (Nevin Gordon, RN) Datetime: 08/26/2016 16:36 NBP Sys/Hallie/Mean (mmHg): 95 (QS system process) : 50 (QS system process) : 71 (QS system process) Pulse: 81 (QS system process) LaborFlag: Antepartum (QS system process) Datetime: 08/26/2016 16:32 NBP Sys/Hallie/Mean (mmHg): 101 (QS system process) : 60 (QS system process) : 75 (QS system process) Pulse: 82 (QS system process) LaborFlag: Antepartum (QS system process) Datetime: 08/26/2016 16:30 Monitor Mode: External US (Nevin Gordon, RN) FHR Baseline Rate : 145 (Nevin Gordon, RN) Variability: Moderate 6-25 bpm (Nevin Harveyon, RN) Accelerations: 15X15 (Nevin Gordon, RN) Decelerations: Early (Nevin Gordon, RN) Datetime: 08/26/2016 16:26 NBP Sys/Hallie/Mean (mmHg): 96 (QS system process) : 51 (QS system process) : 68 (QS system process) Pulse: 86 (QS system process) LaborFlag: Antepartum (QS system process) Datetime: 08/26/2016 16:20 NBP Sys/Hallie/Mean (mmHg): 90 (QS system process) : 54 (QS system process) : 68 (QS system process) Pulse: 82 (QS system process) Pain Scale: 0 (Nevin Gordon RN) Pain Presence: None/Denies (Nevin Gordon RN) Pain Type: N/A (Nevin Gordon RN) Pain Relief Measures: Epidural Given (Nevin Gordon RN) Dilatation (cm): 6.0 (Nevin Gordon RN) Effacement (%): 90 (Nevin Gordon RN) Station: -1 (Nevin Gordon RN) Exam by: Jorge Gordon RN (Nevin Gordon RN) Anesthesia Level Check: T9 (Nevin Gordon RN) LaborFlag: Antepartum (QS system process) Datetime: 08/26/2016 16:19 NBP Sys/Hallie/Mean (mmHg): 89 (QS system process) : 54 (QS system process) : 67 (QS system process) Pulse: 88 (QS system process) LaborFlag: Antepartum (QS system process) Datetime: 08/26/2016 16:18 NBP Sys/Hallie/Mean (mmHg): 93 (QS system process) : 51 (QS system process) : 68 (QS system process) Pulse: 81 (QS system process) Patient Care Comments: O2 removed. (Nevin Gordon RN) LaborFlag: Antepartum (QS system process) Datetime: 08/26/2016 16:17 NBP Sys/Hallie/Mean (mmHg): 108 (QS system process) : 66 (QS system process) : 78 (QS system process) Pulse: 83 (QS system process) LaborFlag: Antepartum (QS system process) Datetime: 08/26/2016 16:16 Patient Position/Activity: Left Tilt; Peanut Ball (Nevin Gordon RN) Datetime: 08/26/2016 16:15 NBP Sys/Hallie/Mean (mmHg): 93 (QS system process) : 50 (QS system process) : 68 (QS system process) Pulse: 79 (QS system process) Monitor Mode: External; Palpation (Nevin Gordon RN) Frequency (min): 2-6 (Nevin Gordon RN) Quality: Moderate (Nevin Gordon RN) Duration (sec): 60-80 (Nevin Gordon RN) Resting Tone (Palpate): Relaxed (Nevin Gordon RN) Monitor Mode: External US (Nevin Gordon RN) FHR Baseline Rate : 140 (Nevin Gordon RN) Variability: Moderate 6-25 bpm (Nevin Gordon RN) Accelerations: 15X15 (Nevin Gordon RN) Decelerations: Variable; Prolonged (Nevin Gordon RN) I/O Interventions: [place] Cath Inserted (Nevin Gordon RN) LaborFlag: Antepartum (QS system process) Datetime: 08/26/2016 16:14 NBP Sys/Hallie/Mean (mmHg): 93 (QS system process) : 55 (QS system process) : 69 (QS system process) Pulse: 72 (QS system process) LaborFlag: Antepartum (QS system process) Datetime: 08/26/2016 16:13 NBP Sys/Hallie/Mean (mmHg): 92 (QS system process) : 54 (QS system process) : 70 (QS system process) Pulse: 68 (QS system process) LaborFlag: Antepartum (QS system process) Datetime: 08/26/2016 16:12 NBP Sys/Hallie/Mean (mmHg): 96 (QS system process) : 52 (QS system process) : 69 (QS system process) Pulse: 65 (QS system process) LaborFlag: Antepartum (QS system process) Datetime: 08/26/2016 16:11 NBP Sys/Hallie/Mean (mmHg): 100 (QS system process) : 53 (QS system process) : 73 (QS system process) Pulse: 62 (QS system process) LaborFlag: Antepartum (QS system process) Datetime: 08/26/2016 16:10 NBP Sys/Hallie/Mean (mmHg): 102 (QS system process) : 57 (QS system process) : 76 (QS system process) Pulse: 65 (QS system process) Patient Care Comments: 10L O2 via nonrebreather applied. (Nevin Gordon RN) LaborFlag: Antepartum (QS system process) Datetime: 08/26/2016 16:09 NBP Sys/Hallie/Mean (mmHg): 110 (QS system process) : 73 (QS system process) : 85 (QS system process) Pulse: 63 (QS system process) Patient Position/Activity: Right Lateral (Nevin Gordon RN) LaborFlag: Antepartum (QS system process) Datetime: 08/26/2016 16:08 NBP Sys/Hallie/Mean (mmHg): 111 (QS system process) : 69 (QS system process) : 87 (QS system process) Pulse: 78 (QS system process) LaborFlag: Antepartum (QS system process) Datetime: 08/26/2016 16:07 NBP Sys/Hallie/Mean (mmHg): 59 (QS system process) : 31 (QS system process) : 41 (QS system process) Pulse: 67 (QS system process) Medication Comments: Ephedrine 5mg PO administered. (Nevin Gordon RN) LaborFlag: Antepartum (QS system process) Datetime: 08/26/2016 16:06 NBP Sys/Hallie/Mean (mmHg): 66 (QS system process) : 31 (QS system process) : 43 (QS system process) Pulse: 68 (QS system process) LaborFlag: Antepartum (QS system process) Datetime: 08/26/2016 16:05 NBP Sys/Hallie/Mean (mmHg): 75 (QS system process) : 40 (QS system process) : 52 (QS system process) Pulse: 110 (QS system process) LaborFlag: Antepartum (QS system process) Datetime: 08/26/2016 16:04 NBP Sys/Hallie/Mean (mmHg): 107 (QS system process) : 65 (QS system process) : 76 (QS system process) Pulse: 115 (QS system process) LaborFlag: Antepartum (QS system process) Datetime: 08/26/2016 16:02 NBP Sys/Hallie/Mean (mmHg): 105 (QS system process) NBP Sys/Hallie/Mean (mmHg): 107 (QS system process) : 73 (QS system process) : 80 (QS system process) : 85 (QS system process) : 90 (QS system process) Pulse: 86 (QS system process) Pulse: 107 (QS system process) LaborFlag: Antepartum (QS system process) Datetime: 08/26/2016 16:01 NBP Sys/Hallie/Mean (mmHg): 107 (QS system process) : 69 (QS system process) : 82 (QS system process) Pulse: 93 (QS system process) LaborFlag: Antepartum (QS system process) Datetime: 08/26/2016 16:00 Monitor Mode: External; Palpation (Nevin Gordon RN) Frequency (min): 2-5 (Nevin Gordon RN) Quality: Moderate (Nevin Gordon RN) Duration (sec): 60-90 (Nevin Gordon RN) Resting Tone (Palpate): Relaxed (Nevin Gordon RN) Monitor Mode: External US (Nevin Gordon RN) FHR Baseline Rate : 140 (Nevin Gordon RN) Variability: Moderate 6-25 bpm (Nevin Gordon RN) Accelerations: 15X15 (Nevin Gordon RN) Decelerations: None (Nevin Gordon RN) Patient Care Comments: Pt. supine after epidural. (Nevin Gordon RN)
[2016-08-26] MEDS ORDERED: CITRIC ACID/SODIUM CITRATE ORAL SOLN 15 ML UDCUP ONE (19:40)
[2016-08-26] MEDS ORDERED: CEFAZOLIN 2 GM/D5W RTU 2 GM/50 ML RTUPB IV ONE (19:40)
[2016-08-26] MEDS ORDERED: LIDOCAINE 2%/EPINEPHRINE INJ 20 ML VIAL ONE (19:43)
[2016-08-26] MEDS ORDERED: ACETAMINOPHEN 325 MG TABLET PO PRN (19:47)
[2016-08-26] MEDS ORDERED: PROMETHAZINE HCL INJ 25 MG/1 ML VIAL IV PRN ×2 (19:47→20:19)
[2016-08-26] MEDS ORDERED: OXYCODONE-ACETAMINOPHEN 5-325 MG TABLET PO PRN ×3 (19:47→20:19)
[2016-08-26] MEDS ORDERED: SIMETHICONE 80 MG TAB.CHEW PO PRN (19:47)
[2016-08-26] MEDS ORDERED: MEASLES,MUMPS&RUBELLA VACC/PF 0.5 ML VIAL SUBCUT PRN (19:47)
[2016-08-26] MEDS ORDERED: DIPH/PERTUSS(ACELL)/TETANUS VAC/PF 0.5 ML SYR (>=10YO) IM PRN (19:47)
--- NOTE | 2016-08-26 20:01 | L&D Flow Sheet ---
LD Flowsheet Datetime Report Generated by CPN: 08/26/2016 20:00 Datetime: 08/26/2016 19:53 Communication Comments: Pt. to OR (Katie Aguilar, RN) Datetime: 08/26/2016 19:51 Antibiotics: Ancef IV (Gm) @ 2 (Katie Aguilar, RN) Communication Comments: monitors turned off at this time (Katie Aguilar, RN) Datetime: 08/26/2016 19:49 Patient Care Comments: wellington wipes completed (Katie Aguilar, RN) Datetime: 08/26/2016 19:48 I/O Interventions: Lunsford Cath Inserted (Crystal Willow River, RN) Datetime: 08/26/2016 19:40 Communication Comments: Nursing platform material handling supervisor called and notified of STAT section. She states she will call SHOE REPAIRER and anesthesia. Samantha Matters CONCRETE BOOM OPERATOR called and notified of section. She states she will be to the unit in 20 minutes (Katie Sheikh RN) Communication Comments: Dr. Elizondo called and notified of csection called. she states she will be to unit shortly (Katie Chanco, RN) Datetime: 08/26/2016 19:39 Vacuum: Off (Crystal Willow River, RN) Vacuum: On (Crystal Willow River, RN) Stage 2 Comments: suction 550 (Crystal Lakisha, RN) Communication Comments: c/section called by Dr. Fuentes (Katie Sheikh, RN) Datetime: 08/26/2016 19:38 NBP Sys/Hallie/Mean (mmHg): 123 (QS system process) : 78 (QS system process) : 94 (QS system process) Pulse: 94 (QS system process) LaborFlag: Antepartum (QS system process) Datetime: 08/26/2016 19:37 Vacuum: Off (Crystal Willow River, RN) Vacuum: On (Crystal Willow River, RN) Stage 2 Comments: Suction 550 (Crystal Willow River, RN) Datetime: 08/26/2016 19:34 Provider Reviewed Strip: Yes (Crystal Lakisha, RN) Communication: Provider at Bedside (Crystal Lakisha, RN) Provider Notified (Name): Fuentes (Crystal Willow River, RN) Datetime: 08/26/2016 19:32 Actions for Decelerations: Hands and Knees (Crystal Willow River, RN) Datetime: 08/26/2016 19:30 Pushing: Coached on Pushing (Crystal Lakisha, RN) Pushing Position: Pushing with Contractions (Crystal Willow River, RN) Datetime: 08/26/2016 19:25 Oxygen Method: Non-Rebreather (Crystal Willow River, RN) Datetime: 08/26/2016 19:22 NBP Sys/Hallie/Mean (mmHg): 123 (QS system process) : 55 (QS system process) : 70 (QS system process) Pulse: 120 (QS system process) LaborFlag: Antepartum (QS system process) Datetime: 08/26/2016 19:11 Dilatation (cm): 10.0 (Crystal Lakisha, RN) Effacement (%): 100 (Crystal Willow River, RN) Station: 3 (Crystal Lakisha, RN) Exam by: Dr. Fuentes (Crystal Willow River, RN) Datetime: 08/26/2016 19:07 NBP Sys/Hallie/Mean (mmHg): 108 (QS system process) : 62 (QS system process) : 81 (QS system process) Pulse: 61 (QS system process) LaborFlag: Antepartum (QS system process) Datetime: 08/26/2016 18:54 Patient Position/Activity: Left Tilt; Semi-Fowlers (Nevin Gordon RN) Communication: RN at Bedside (Nevin Gordon RN) Datetime: 08/26/2016 18:51 NBP Sys/Hallie/Mean (mmHg): 98 (QS system process) : 58 (QS system process) : 73 (QS system process) Pulse: 66 (QS system process) LaborFlag: Antepartum (QS system process) Datetime: 08/26/2016 18:47 NBP Sys/Hallie/Mean (mmHg): 109 (QS system process) : 65 (QS system process) : 82 (QS system process) Pulse: 72 (QS system process) Temperature (F): 98.0 (Nevin Gordon RN) Temperature (C): 36.7 (QS system process) LaborFlag: Antepartum (QS system process) Datetime: 08/26/2016 18:41 NBP Sys/Hallie/Mean (mmHg): 97 (QS system process) : 61 (QS system process) : 73 (QS system process) Pulse: 71 (QS system process) LaborFlag: Antepartum (QS system process) Datetime: 08/26/2016 18:36 NBP Sys/Hallie/Mean (mmHg): 101 (QS system process) : 62 (QS system process) : 76 (QS system process) Pulse: 61 (QS system process) LaborFlag: Antepartum (QS system process) Datetime: 08/26/2016 18:31 NBP Sys/Hallie/Mean (mmHg): 97 (QS system process) : 58 (QS system process) : 72 (QS system process) Pulse: 78 (QS system process) LaborFlag: Antepartum (QS system process) Datetime: 08/26/2016 18:30 Monitor Mode: External; Palpation (Nevin Gordon, RN) Frequency (min): 2-3 (Nevin Gordon, RN) Quality: Moderate (Nevin Gordon, RN) Duration (sec): 60-90 (Nevin Gordon, RN) Resting Tone (Palpate): Relaxed (Nevin Gordon, RN) Monitor Mode: External US (Nevin Gordon, RN) FHR Baseline Rate : 130 (Nevin Gordon, RN) Variability: Moderate 6-25 bpm (Nevin Gordon, RN) Accelerations: 15X15 (Nevin Gordon, RN) Decelerations: Late (Nevin Gordon, RN) Datetime: 08/26/2016 18:27 Patient Position/Activity: Right Tilt; Semi-Fowlers (Nevin Gordon, RN) Communication: RN at Bedside (Nevin Gordon, RN) Datetime: 08/26/2016 18:26 NBP Sys/Hallie/Mean (mmHg): 100 (QS system process) : 68 (QS system process) : 79 (QS system process) Pulse: 66 (QS system process) LaborFlag: Antepartum (QS system process) Datetime: 08/26/2016 18:22 NBP Sys/Hallie/Mean (mmHg): 101 (QS system process) : 63 (QS system process) : 77 (QS system process) Pulse: 61 (QS system process) LaborFlag: Antepartum (QS system process) Datetime: 08/26/2016 18:17 NBP Sys/Hallie/Mean (mmHg): 96 (QS system process) : 57 (QS system process) : 71 (QS system process) Pulse: 62 (QS system process) LaborFlag: Antepartum (QS system process) Datetime: 08/26/2016 18:15 Monitor Mode: External; Palpation (Nevin Gordon, RN) Frequency (min): 2-3 (Nevin Gordon RN) Quality: Moderate (Nevni Gordon RN) Duration (sec): 60-90 (Nevin Gordon RN) Resting Tone (Palpate): Relaxed (Nevin Gordon, RN) Monitor Mode: External US (Nevin Gordon, RN) FHR Baseline Rate : 130 (Nevin Gordon RN) Variability: Moderate 6-25 bpm (Nevin Gordon, RN) Decelerations: None (Nevin Gordon, RN) Datetime: 08/26/2016 18:11 NBP Sys/Hallie/Mean (mmHg): 101 (QS system process) : 62 (QS system process) : 77 (QS system process) Pulse: 80 (QS system process) LaborFlag: Antepartum (QS system process) Datetime: 08/26/2016 18:09 Patient Position/Activity: Semi-Fowlers (Nevin Gordon RN) Communication Comments: Dr Fuentes notified of variables and late decels and pitocin d/c'd. SVE 6/90/0, orders received to restart pitocin after 30 min of no late decels. (Della Sahni RN) Datetime: 08/26/2016 18:06 NBP Sys/Hallie/Mean (mmHg): 101 (QS system process) : 59 (QS system process) : 75 (QS system process) Pulse: 60 (QS system process) LaborFlag: Antepartum (QS system process) Datetime: 08/26/2016 18:03 Dilatation (cm): 6.0 (Nevin Gordon, FABRIZIO) Effacement (%): 90 (Nevin Gordon, FABRIZIO) Station: 0 (Nevin Gordon RN) Exam by: Jorge Gordon RN (Nevin Gordon RN) Datetime: 08/26/2016 18:02 NBP Sys/Hallie/Mean (mmHg): 91 (QS system process) : 55 (QS system process) : 66 (QS system process) Pulse: 105 (QS system process) LaborFlag: Antepartum (QS system process) Datetime: 08/26/2016 18:00 Monitor Mode: External; Palpation (Nevin Gordon RN) Frequency (min): 2-5 (Nevin Gordon RN) Quality: Moderate (Nevin Gordon RN) Duration (sec): 60-90 (Nevin Gordon RN) Resting Tone (Palpate): Relaxed (Nevin Gordon RN) Monitor Mode: External US (Nevin Gordon RN) FHR Baseline Rate : 130 (Nevin Gordon RN) Variability: Minimal - Undetectable to <=5 bpm (Nevin Gordon RN) Accelerations: None (Nevin Gordon RN) Decelerations: Prolonged (Nevin Gordon RN)
[2016-08-26] MEDS ORDERED: DIPHENHYDRAMINE HCL 50 MG/ML VIAL IV PRN (20:19)
[2016-08-26] MEDS ORDERED: MEPERIDINE HCL/PF INJ 25 MG/1 ML DISP.SYRIN IV PRN (20:19)
[2016-08-26] MEDS ORDERED: ONDANSETRON HCL INJ/PF 4 MG/2 ML SDV IV PRN (20:19)
[2016-08-26] MEDS ORDERED: FENTANYL CITRATE INJ/PF 100 MCG/2 ML AMPUL IV PRN ×3 (20:19)
[2016-08-26] MEDS ORDERED: MORPHINE SULFATE 10 MG/ML INJ IV PRN (20:19)
--- NOTE | 2016-08-26 20:52 | Operative Report ---
Operative Report DATE OF SURGERY: 08/26/16 PREOPERATIVE DIAGNOSIS: Cephalopelvic disproportion, direct Op POSTOPERATIVE DIAGNOSIS: Same OPERATION: Prior via low transverse uterine incision SURGEON: STEPHEN EDGAR INSULATION POWER UNIT TENDER: or staff ANESTHESIA: Epidural TISSUE REMOVED OR ALTERED: Placenta COMPLICATIONS: None ESTIMATED BLOOD LOSS: 250 mL INTRAOPERATIVE FINDINGS: Baby is directly OP PROCEDURE: Patient was taken to the OR and placed in supine position after her spinal anesthesia. She is prepared and draped in sterile fashion. Lunsford was placed for drainage of the bladder. Low transverse incision was made and carried down the level of the fascia. The fascial incision was made with knife and extended bilaterally with curved Orozco scissors. The fascia was off the rectus muscles using sharp and blunt dissection. The rectus muscles are in the midline. The peritoneum was entered without incident. Bladder blade was placed in uterine segment was identified. A low transverse incision was made creating a bladder flap. Bladder blade was placed low transverse uterine incision was made with the knife and extended with fingertips. The baby was delivered with some fundal pressure. The assistance of vaginal hand was also used. Mouth and nose were suctioned free. The cord is doubly clamped and cut. Baby is passed off to the training and development officer in attendance. The placenta was manually extracted with trailing membranes. The uterus was externalized wrapped in a moist lap sponge. Uterine contents wiped free. Uterus was closed with a running locking layer of 0 chromic suture using the second layer to imbricate the first completing a double layer closure of the uterus. The serosa was closed with a running 2-0 chromic stitch. The pelvis was irrigated and suctioned free of fluid the uterus was replaced in the abdomen. The abdominal wall peritoneum was closed with running 2-0 chromic stitch. Fascia was closed with a running 0 Vicryl in 2 segments. Mariaelena's layer was brought together with 0 plain gut stitch and the skin was closed with running subcuticular 4-0 undyed Vicryl stitch. The wound was dressed mother and baby did well.
--- NOTE | 2016-08-26 21:20 | Admission Physical ---
Datetime Report Generated by CPN: 08/26/2016 21:20 CURRENT ADMISSION Chief Complaint: Uterine Contractions Indication for Induction: Other Indication for Induction- Other: heart rate decells Admit Plan: Admit to Unit; Initiate Labor Augmentation Protocol ALLERGIES Medication Allergies: No Medication Allergies: No Known Allergies (08/23/2016) Latex: No Latex Allergies Food Allergies: none Environmental Allergies: none OBSTETRICAL HISTORY EDC: 09/05/2016 00:00 : 3 Para: 1 Term: 1 : 0 IAB: 1 Ectopic: 0 Livin Cesareans: 0 VBACs: 0 Multiple Births: 0 Gestational Diabetes: No Rh Sensitization: No Incompetent Cervix: No KAMRAN: No Infertility: No ART Treatment: No Uterine Anomaly: No IUGR: No Hx Previous C/S: No Macrosomia: No Hx Loss/Stillborn: No PIH: Yes Hx : No Placenta Previa/Abruption: No Depression/PP Depression: No PTL/PROM: No Post Hemorrhage: No Current Procedures: Ultrasound; NST Obstetrical History Comments: G1 - EAB (2005) G2 - at 38 wks (2010) - IOl fo pre-eclampsia SEE RECORDS Alcohol: No Marijuana : No Cocaine: No Other Illicit Drugs: No Cigarettes: Never Smoker. [id number] MEDICAL HISTORY Diabetes: No Blood Transfusion: No Pulmonary Disease (Asthma, TB): No Breast Disease: No Hypertension: No Transportation Associate Surgery: No Heart Disease: No Hosp/Surgery: No Autoimmune Disorder: No Anesthetic Complications: No Kidney Disease: No Abnormal Pap Smear: Yes Neuro/Epilepsy: No Psychiatric Disorders: No Other Medical Diseases: No Hepatitis/Liver Disease: No Significant Family History: No Varicosities/Phlebitis: No Trauma/Violence : No Thyroid Dysfunction: No Medical History Comments: x 1 INFECTIOUS HISTORY Gonorrhea: No Genital Herpes: No Chlamydia: No Tuberculosis: No Syphilis: No Hepatitis: No HIV/AIDS Exposure: No Rash or Viral Illness: No HPV: No Infectious History Comments: colpo 2007 PHYSICAL EXAM General: Normal HEENT: Normal Neurologic: Normal Thyroid: Normal Heart: Normal Lungs: Normal Breast: Deferred Back: Normal Abdomen: Normal Genitourinary Exam: Normal Extremities: Normal DTRs: Normal Pelvic Type: Adequate Vital Signs: Reviewed VAGINAL EXAM Dilatation: 4 Effacement: 80 Station: -1 MEMBRANES Pooling: Negative Membranes: Intact FETUS A EGA: 38.4 FHR- Baseline: 140 Variability: Moderate 6-25bpm Accelerations: 15X15 Decelerations: None FHR Category: Category I PLANS FOR LABOR AND DELIVERY Labor and Delivery: None Pain Management: Epidural Feeding Preference: Formula Benefit of Breast Feed Discussed: Yes Circumcision: Yes INFORMED CONSENT Signature: with User ID: [email or web address]
[2016-08-26] MEDS ORDERED: MEPERIDINE HCL/PF INJ 25 MG/1 ML DISP.SYRIN ONE (21:37)
--- NOTE | 2016-08-26 22:16 | Delivery Summary ---
Del Sum A-C Datetime Report Generated by CPN: 08/26/2016 22:16 ADMISSION DATA Chief Complaint: Uterine Contractions Indication for Induction: Other Indication for Induction Comment: heart rate decells Admission Impression: Term, Intrauterine ; Active Labor DELIVERY PERSONNEL Delivery Doctor:: Greg Fuentes MD Anesthesiologist:: Keren Nunez MD BANK CONSULTANT:: Natasha Chung CRNA Labor and Delivery Nurse:: Adilia Banuelos RN Labor and Delivery Nurse:: Felicia Hager RN Neonatal Nurse Practitioner:: Samantha Matters, INSTRUMENTATION INSTRUCTOR Nursery Nurse:: Rachel Fentonley, RN Nursery Nurse:: Minnie Zepedaan, RN Television Host/SUPERVISOR WET ROOM: Kavita Wagner, ST Television Host/SUPERVISOR WET ROOM: Joya Nichols, ST MATERNAL INFORMATION Delivery Anesthesia: Epidural; Spinal Medications After Delivery: Pitocin Drip 20 Units/1000ml NSS Maternal Complications: None LABOR SUMMARY EDC: 09/05/2016 00:00 No. Babies in Womb: 1 Attempted: No Labor Anesthesia: Epidural LABOR INFORMATION Reason for Induction: Not Applicable Onset of Labor: 08/26/2016 14:13 Complete Dilatation: 08/26/2016 19:11 Oxytocin: Augmentation Group B Beta Strep: Negative Antibiotics # of Doses: 0 Antibiotics Time of Last Dose: n/a Steroids Given: None Reason Steroids Not Administered: Not Applicable MEMBRANES Membranes Rupture Method: Artificial Rupture of Membranes: 08/26/2016 14:13 Length of Rupture (hr): 5.95 Amniotic Fluid Color: Clear Amniotic Fluid Amount: Small Amniotic Fluid Odor: Normal STAGES OF LABOR Stage 1 hr: 4 Stage 1 min: 58 Stage 2 hr: 0 Stage 2 min: 59 Stage 3 hr: 0 Stage 3 min: 0 Total Time in Labor hr: 5 Total Time in Labor min: 57 VAGINAL DELIVERY Episiotomy: None Laceration Extension: N/A Laceration Type: None Laceration Repair: Not Applicable Sponge Count Correct: N/A Sharps Count Correct: N/A CSECTION DELIVERY Primary Indication: Other Other Primary Indication: CPD Secondary Indication: Nonreassuring Status CSection Urgency: Emergency CSection Incidence: Primary Labor: Labor Elective: N/A CSection Incision: Lower Uterine Transverse BABY A INFORMATION Infant Delivery Date/Time: 08/26/2016 20:10 Method of Delivery: Born in Route : No : N/A Forceps: N/A Vacuum Extraction: Failed Shoulder Dystocia : No PRESENTATION/POSITION BABY A Presentation: Cephalic Cephalic Presentation: Vertex Vertex Position: Left Occipital Posterior Breech Presentation: N/A PLACENTA INFORMATION BABY A Placenta Delivery Time : 08/26/2016 20:10 Placenta Method of Delivery: Expressed Placenta Status: Delivered SCORES BABY A Heart Rate 1 min: >100 bpm Resp Effort 1 min: Good Cry Reflex Irritability 1 min: Cough or Sneeze or Pulls Away Muscle Tone 1 min: Active Motion Color 1 min: Body Cardwell, Extremities Blue Resuscitation Effort 1 min: Tactile Stimulation SCORE 1 MIN: 9 Heart Rate 5 min: >100 bpm Resp Effort 5 min: Good Cry Reflex Irritability 5 min: Cough or Sneeze or Pulls Away Muscle Tone 5 min: Active Motion Color 5 min: Body Cardwell, Extremities Blue SCORE 5 MIN: 9 INFORMATION BABY A Gestational Age at Delivery: 38.4 Gestational Status: Early Term- 37- 38.6 Weeks Outcome : Liveborn Infant Condition : Stable Sex: Male IDENTIFICATION BABY A Verification Date/Time: 08/26/2016 20:15 ID Band Number: [id number] Mother's Name Verified: Yes RN Verifying Infant: CStewart Banuelos, RN Additional Verifying Personnel: Caty Hager, RN WEIGHT/LENGTH BABY A Birthweight (gm): 3805 Weight (lb): 8 Weight (oz): 6 Length (in): 21.00 Length (cm): 53.34 CORD INFORMATION BABY A No. Cord Vessels: 3 Nuchal Cord : N/A Cord Blood Taken: Yes-For Storage (Mom's Blood type +) ASSESSMENT BABY A Complications: Multiple Late Decels Physical Findings at Delivery: Molding of the Head Respirations: Appears Normal Skin to Skin: No Care By: Minnie Villegas RN Transferred To: Nursery
[2016-08-27] MEDS ORDERED: RINGERS SOLUTION,LACTATED 1,000 ML IV PRN (00:31)
[2016-08-27] MEDS ORDERED: OXYTOCIN/NORMAL SALINE 1,000 ML IV PRN (00:39)
[2016-08-27] MEDS ORDERED: OXYCODONE-ACETAMINOPHEN 5-325 MG TABLET PO PRN (00:39)
[2016-08-27] MEDS ORDERED: HYDROMORPHONE HCL INJ/PF 2 MG/ML AMPULE IV PRN (00:39)
[2016-08-27] MEDS ORDERED: SIMETHICONE 80 MG TAB.CHEW PO PRN (00:39)
[2016-08-27] MEDS ORDERED: PROMETHAZINE HCL INJ 25 MG/1 ML VIAL IV PRN (00:39)
[2016-08-27] MEDS ORDERED: ACETAMINOPHEN 325 MG TABLET PO PRN (00:39)
[2016-08-27] MEDS ORDERED: MEASLES,MUMPS&RUBELLA VACC/PF 0.5 ML VIAL SUBCUT PRN (00:39)
[2016-08-27] MEDS ORDERED: DIPH/PERTUSS(ACELL)/TETANUS VAC/PF 0.5 ML SYR (>=10YO) IM PRN (00:39)
[2016-08-27] MEDS ORDERED: KETOROLAC TROMETHAMINE INJ/PF 30 MG/1 ML SDV IV ONE (01:00)
[2016-08-27] MEDS: IBUPROFEN 800 MG TABLET PO SCH ×2 (05:40→11:54)
[2016-08-27] MEDS ORDERED: KETOROLAC TROMETHAMINE INJ/PF 30 MG/1 ML SDV IV SCH (06:00)
--- NOTE | 2016-08-27 07:01 | L&D Flow Sheet ---
LD Flowsheet Datetime Report Generated by CPN: 08/27/2016 07:00 Datetime: 08/26/2016 22:31 Pulse: 75 (QS system process) SpO2 (%): 100 (QS system process) Datetime: 08/26/2016 22:30 Stage of : Recovery (Crystal Lakisha, RN) Respirations: 16 (Crystal Clark, RN) Temperature (F): 97.7 (Crystal Clark, RN) Temperature (C): 36.5 (QS system process) Temperature Route: Oral (Crystal Clark, RN) Pain Scale: 2 (Crystal Lakisha, RN) Pain Presence: Constant (Crystal Clark, RN) Pain Type: Ache (Crystal Clark, RN) Pain Location: Abdomen; Head (Crystal Clark, RN) Pain Goal: 1 (Crystal Clark, RN) Pain Relief Measures: Comfort Measures (Crystal Clark, RN) Datetime: 08/26/2016 22:28 NBP Sys/Hallie/Mean (mmHg): 108 (QS system process) : 67 (QS system process) : 83 (QS system process) Pulse: 70 (QS system process) Datetime: 08/26/2016 22:26 Pulse: 72 (QS system process) SpO2 (%): 100 (QS system process) Datetime: 08/26/2016 22:21 Pulse: 76 (QS system process) SpO2 (%): 100 (QS system process) Datetime: 08/26/2016 22:16 Pulse: 79 (QS system process) SpO2 (%): 100 (QS system process) Datetime: 08/26/2016 22:15 Stage of : Recovery (Crystal Lakisha, RN) Datetime: 08/26/2016 22:13 NBP Sys/Hallie/Mean (mmHg): 100 (QS system process) : 59 (QS system process) : 74 (QS system process) Pulse: 63 (QS system process) Datetime: 08/26/2016 22:11 Pulse: 67 (QS system process) SpO2 (%): 100 (QS system process) Datetime: 08/26/2016 22:07 Stage of : Recovery (Adilia Banuelos RN) Pain Scale: 2 (Adilia Banuelos RN) Pain Presence: Constant (Adilia Banuelos RN) Pain Type: Ache (Adilia Llanosergrass, RN) Pain Location: Abdomen; Head (Adilia Banuelos RN) Pain Goal: 1 (Adilia Banuelos RN) Pain Relief Measures: Pain Medication Given (Adilia Banuelos RN) Datetime: 08/26/2016 22:06 Pulse: 81 (QS system process) SpO2 (%): 100 (QS system process) Datetime: 08/26/2016 22:01 Pulse: 75 (QS system process) SpO2 (%): 100 (QS system process) Datetime: 08/26/2016 22:00 Stage of : Recovery (Crystal Lakisha, RN) Pain Scale: 2 (Crystal Clark, RN) Pain Presence: Constant (Crystal Lakisha, RN) Pain Type: Ache (Crystal Lakisha, RN) Pain Location: Abdomen; Head (Crystal Clark, RN) Pain Goal: 1 (Crystal Clark, RN) Pain Relief Measures: Comfort Measures (Crystal Lakisha, RN) Datetime: 08/26/2016 21:58 NBP Sys/Hallie/Mean (mmHg): 101 (QS system process) : 61 (QS system process) : 76 (QS system process) Pulse: 83 (QS system process) Datetime: 08/26/2016 21:56 Pulse: 82 (QS system process) SpO2 (%): 100 (QS system process) Datetime: 08/26/2016 21:51 Pulse: 75 (QS system process) SpO2 (%): 100 (QS system process) Datetime: 08/26/2016 21:46 Pulse: 66 (QS system process) SpO2 (%): 100 (QS system process) Datetime: 08/26/2016 21:45 Stage of : Recovery (Crystal Lakisha, RN) Datetime: 08/26/2016 21:43 NBP Sys/Hallie/Mean (mmHg): 99 (QS system process) : 56 (QS system process) : 72 (QS system process) Pulse: 74 (QS system process) Datetime: 08/26/2016 21:41 Pulse: 77 (QS system process) SpO2 (%): 100 (QS system process) Datetime: 08/26/2016 21:39 Stage of : Recovery (Crystal Clark, RN) Datetime: 08/26/2016 21:36 Pulse: 81 (QS system process) SpO2 (%): 100 (QS system process) Datetime: 08/26/2016 21:31 Pulse: 87 (QS system process) SpO2 (%): 100 (QS system process) Datetime: 08/26/2016 21:30 Stage of : Recovery (Crystal Clark, RN) Pain Scale: 2 (Adilia Clark, RN) Pain Presence: Constant (Crystal Clark, RN) Pain Type: Ache (Crystal Clark, RN) Pain Location: Head (Crystal Clark, RN) Pain Goal: 1 (Crystal Lakisha, RN) Pain Relief Measures: Pain Medication Given (Crystal Clark, RN) Datetime: 08/26/2016 21:28 NBP Sys/Hallie/Mean (mmHg): 99 (QS system process) : 57 (QS system process) : 73 (QS system process) Pulse: 80 (QS system process) Datetime: 08/26/2016 21:26 Pulse: 82 (QS system process) SpO2 (%): 100 (QS system process) Datetime: 08/26/2016 21:16 Pulse: 83 (QS system process) SpO2 (%): 100 (QS system process) Datetime: 08/26/2016 21:15 Stage of : Recovery (Crystal Lakisha, RN) Pain Relief Measures: Pain Medication Given (Crystal Clark, RN) Datetime: 08/26/2016 21:13 NBP Sys/Hallie/Mean (mmHg): 95 (QS system process) : 54 (QS system process) : 68 (QS system process) Pulse: 71 (QS system process) Datetime: 08/26/2016 21:11 Pulse: 70 (QS system process) SpO2 (%): 99 (QS system process) Datetime: 08/26/2016 21:06 Stage of : Recovery (Adilia Banuelos RN) Pulse: 84 (QS system process) SpO2 (%): 100 (QS system process) Datetime: 08/26/2016 21:01 Pulse: 85 (QS system process) SpO2 (%): 100 (QS system process) Datetime: 08/26/2016 21:00 Stage of : Recovery (Adilia Banuelos RN) Pain Scale: 3 (Adilia Banuelos RN) Pain Presence: Constant (Adilia Banuelos RN) Pain Type: Ache (Adilia Banuelos RN) Pain Location: Head (Adilia Banuelos RN) Pain Goal: 1 (Adilia Banuelos RN) Pain Relief Measures: Comfort Measures (Crystal Lakisha, RN) Datetime: 08/26/2016 20:58 NBP Sys/Hallie/Mean (mmHg): 90 (QS system process) : 52 (QS system process) : 67 (QS system process) Pulse: 71 (QS system process) Datetime: 08/26/2016 20:56 Pulse: 75 (QS system process) SpO2 (%): 100 (QS system process) Datetime: 08/26/2016 20:53 NBP Sys/Hallie/Mean (mmHg): 94 (QS system process) : 50 (QS system process) : 65 (QS system process) Pulse: 71 (QS system process) Datetime: 08/26/2016 20:51 Pulse: 77 (QS system process) SpO2 (%): 100 (QS system process) Datetime: 08/26/2016 20:45 Stage of : Recovery (Crystal Clark, RN) Respirations: 18 (Crystal Lakisha, RN) Temperature (F): 97.1 (Crystal Lakisha, RN) Temperature (C): 36.2 (QS system process) Temperature Route: Oral (Crystal Lakisha, RN) Pain Scale: 3 (Crystal Clark, RN) Pain Presence: Constant (Crystal Clark, RN) Pain Type: Ache (Crystal Lakisha, RN) Pain Location: Head (Crystal Lakisha, RN) Pain Goal: 1 (Crystal Clark, RN) Pain Relief Measures: Comfort Measures (Crystal Lakisha, RN) Datetime: 08/26/2016 19:53 Communication Comments: Pt. to OR (Katie Aguilar, RN) Datetime: 08/26/2016 19:51 Monitor Mode: External (Katie Aguilar, RN) Frequency (min): 1.5-2 (Katie Aguilar, RN) Quality: Moderate (Katie Aguilar, RN) Duration (sec): 40-60 (Katie Aguilar, RN) Duration Criteria: Less than Two 120 Second Contractions (Katie Aguilar, RN) Pattern: Normal: <= 5 Contractions in 10 Minutes (Katie Aguilar, RN) Resting Tone (Palpate): Relaxed (Katie Aguilar, RN) Monitor Mode: External US (Katie Aguilar, RN) FHR Baseline Rate : 115 (Katie Aguilar, RN) Variability: Moderate 6-25 bpm (Katie Aguilar, RN) Accelerations: None (Katie Aguilar, RN) Decelerations: Late; Variable (Katie Aguilar, RN) Comments: Madhav Banuelos RN remains at bedside conitinously monitoring FHT (Katie Sheikh, RN) Communication Comments: monitors turned off at this time (Katie Aguilar, RN) Datetime: 08/26/2016 19:49 Patient Care Comments: wellington wipes completed (Katie Aguilar, RN) Datetime: 08/26/2016 19:48 I/O Interventions: [place] Cath Inserted (Crystal Lakisha, RN) Datetime: 08/26/2016 19:45 Monitor Mode: External (Katie Aguilar, RN) Frequency (min): 1.5-5 (Katie Aguilar, RN) Quality: Moderate (Katie Aguilar, RN) Duration (sec): 50-80 (Katie Aguilar, RN) Duration Criteria: Less than Two 120 Second Contractions (Katie Aguilar, RN) Pattern: Normal: <= 5 Contractions in 10 Minutes (Katie Aguilar, RN) Resting Tone (Palpate): Relaxed (Katie Aguilar, RN) Monitor Mode: External US (Katie Aguilar, RN) FHR Baseline Rate : 120 (Katie Aguilar, RN) Variability: Moderate 6-25 bpm (Katie Aguilar, RN) Accelerations: 15X15 (Katie Aguilar, RN) Decelerations: Late (Katie Aguilar, RN) Comments: RN remains at bedisde adjusting u/s continously monitoring FHT. Dr. Fuentes remains at bedside (Katie Aguilar, RN) Antiemetics/Antacids: Bicitra 15 ml PO (Katie Aguilar, RN) Datetime: 08/26/2016 19:44 Antibiotics: Ancef IV (Gm) @ 2 (Katie Aguilar, RN) Datetime: 08/26/2016 19:40 Communication Comments: Nursing stationary engineer supervisor called and notified of STAT section. She states she will call MANAGER WHOLESALE and anesthesia. Samantha Matters MOUSE BREEDER called and notified of section. She states she will be to the unit in 20 minutes (Katie Sheikh RN) Communication Comments: Dr. Elizondo called and notified of csection called. she states she will be to unit shortly (Katie Sheikh, FABRIZIO) Datetime: 08/26/2016 19:39 Vacuum: Off (Adilia Banuelos RN) Vacuum: On (Adilia Banuelos RN) Stage 2 Comments: suction 550 (Adilia Banuelos RN) Communication Comments: c/section called by Dr. Fuentes (Katie Sheikh, FABRIZIO) Datetime: 08/26/2016 19:38 NBP Sys/Hallie/Mean (mmHg): 123 (QS system process) : 78 (QS system process) : 94 (QS system process) Pulse: 94 (QS system process) LaborFlag: Antepartum (QS system process) Datetime: 08/26/2016 19:37 Vacuum: Off (Crystal Lakisha, RN) Vacuum: On (Crystal Lakisha, RN) Stage 2 Comments: Suction 550 (Crystal Lakisha, RN) Datetime: 08/26/2016 19:34 Provider Reviewed Strip: Yes (Crystal Clark, RN) Communication: Provider at Bedside (Crystal Clark, RN) Provider Notified (Name): Fuentes (Crystal Clark, RN) Datetime: 08/26/2016 19:32 Actions for Decelerations: Hands and Knees (Crystal Lakisha, RN) Datetime: 08/26/2016 19:30 Monitor Mode: External (Katie Aguilar, RN) Frequency (min): 2-5 (Katie Aguilar, RN) Quality: Moderate (Katie Aguilar, RN) Duration (sec): 50-100 (Katie Aguilar, RN) Duration Criteria: Less than Two 120 Second Contractions (Katie Aguilar, RN) Pattern: Normal: <= 5 Contractions in 10 Minutes (Katie Aguilar, RN) Resting Tone (Palpate): Relaxed (Katie Aguilar, RN) Monitor Mode: External US (Katie Aguilar, RN) Variability: Moderate 6-25 bpm (Katie Aguilar, RN) Comments: broken tracing. Unable to determine baseline. Audible prolonged decel noted. C. Clark, RN remains at bedside adjusting u/s coninuously monitoring FHT (Katie Aguilar, RN) Pushing: Coached on Pushing (Crystal Clark, RN) Pushing Position: Pushing with Contractions (Crystal Clark, RN) Datetime: 08/26/2016 19:26 Communication Comments: Dr. Fuentes on unit and aware of FHT (Katie Aguilar, RN) Datetime: 08/26/2016 19:25 Oxygen Method: Non-Rebreather (Crystal Clark, RN) Datetime: 08/26/2016 19:22 NBP Sys/Hallie/Mean (mmHg): 123 (QS system process) : 55 (QS system process) : 70 (QS system process) Pulse: 120 (QS system process) LaborFlag: Antepartum (QS system process) Datetime: 08/26/2016 19:15 Monitor Mode: External (Katie Aguilar, RN) Frequency (min): 1.5-2.5 (Katie Aguilar, RN) Quality: Moderate (Katie Aguilar, RN) Duration (sec): 50-110 (Katie Aguilar, RN) Duration Criteria: Less than Two 120 Second Contractions (Katie Aguilar, RN) Pattern: Normal: <= 5 Contractions in 10 Minutes (Katie Aguilar, RN) Resting Tone (Palpate): Relaxed (Katie Aguilar, RN) Monitor Mode: External US (Katie Aguilar, RN) FHR Baseline Rate : 125 (Katie Aguilar, RN) Variability: Moderate 6-25 bpm (Katie Aguilar, RN) Accelerations: 15X15 (Katie Aguilar, RN) Decelerations: Late; Prolonged (Katie Aguilar, RN) Comments: Madhav Banuelos RN at bedside continuously monitoring FHT (Katie Aguilar, RN) Pushing: Coached on Pushing (Katie Aguilar, RN) Pushing Position: Pushing with Contractions (Katie Aguilar, RN) Datetime: 08/26/2016 19:11 Dilatation (cm): 10.0 (Adilia Banuelos RN) Effacement (%): 100 (Adilia Banuelos RN) Station: 3 (Adilia Banuelos RN) Exam by: Dr. Fuentes (Adilia Banuelos RN) Datetime: 08/26/2016 19:07 NBP Sys/Hallie/Mean (mmHg): 108 (QS system process) : 62 (QS system process) : 81 (QS system process) Pulse: 61 (QS system process) LaborFlag: Antepartum (QS system process)
[2016-08-27 07:07] LABS: HEMATOCRIT 28.5 % (36.0-47.0); HGB HCT DIFFERENCE -0.6; MEAN CORPUSCULAR HEMOGLOBIN 28.8 pg (27.0-33.4); MEAN CORPUSCULAR HGB CONC 32.7 g/dL (32.0-36.0); MEAN CORPUSCULAR VOLUME 88 fl (80-97); RED BLOOD COUNT 3.23 10^6/uL (3.72-5.28); RED CELL DISTRIBUTION WIDTH 14.4 % (11.5-14.0); WHITE BLOOD COUNT 14.9 10^3/uL (4.0-10.5)
[2016-08-27 07:42] LABS: HEMOGLOBIN 9.3 g/dL (12.0-15.5)
--- NOTE | 2016-08-27 09:05 | PDOC PROGRESS REPORT ---
Subjective-OB Subjective: Post Delivery Day: 1 31 year old. Denies any needs at this time, ambulating well, starting to pass gas, has not yet voided, pain well controlled. Physical Exam (OB) Vital Signs: Temp Pulse Resp BP Pulse Ox 98.1 F 64 16 100/65 100 08/27/16 08:05 08/27/16 08:05 08/27/16 08:05 08/27/16 08:05 08/27/16 08:05 Intake & Output 08/26/16 08/27/16 08/28/16 06:59 06:59 06:59 Intake Total 1160 Output Total 1350 200 Balance -190 -200 Weight 68.1 kg - Dressing Removed: No Incision: Dressing - Lochia Lochia Amount: Small 10-25 ml Lochia Color: Rubra/Red - Abdomen Description: Tender, Soft Hernia Present: No Fundal Description: Firm, Boggy, Midline Fundal Height: u/u - u/2 Objective-Diagnostic Laboratory: 08/27/16 06:41 08/26/16 08/26/16 08/26/16 10:25 12:56 12:56 WBC 9.2 RBC 4.05 Hgb 11.8 L Hct 36.0 MCV 89 MCH 29.2 MCHC 32.8 RDW 14.9 H Plt Count 108 L Seg Neutrophils % 73.5 Lymphocytes % 17.6 Monocytes % 8.0 Eosinophils % 0.6 Basophils % 0.3 Absolute Neutrophils 6.7 Absolute Lymphocytes 1.6 Absolute Monocytes 0.7 Absolute Eosinophils 0.1 Absolute Basophils 0.0 Urine Color YELLOW Urine Appearance SLIGHTLY-CLOUDY Urine pH 6.0 Ur Specific [place] 1.004 Urine Protein NEGATIVE Urine Glucose (UA) NEGATIVE Urine Ketones TRACE H Urine Blood MODERATE H Urine Nitrite NEGATIVE Ur Leukocyte Esterase LARGE H Blood Type A POSITIVE Antibody Screen NEGATIVE 08/27/16 06:41 WBC 14.9 H RBC 3.23 L Hgb 9.3 L D Hct 28.5 L MCV 88 MCH 28.8 MCHC 32.7 RDW 14.4 H Plt Count Seg Neutrophils % Lymphocytes % Monocytes % Eosinophils % Basophils % Absolute Neutrophils Absolute Lymphocytes Absolute Monocytes Absolute Eosinophils Absolute Basophils Urine Color Urine Appearance Urine pH Ur Specific Bradford Urine Protein Urine Glucose (UA) Urine Ketones Urine Blood Urine Nitrite Ur Leukocyte Esterase Blood Type Antibody Screen Assessment and Plan(PN) - Assessment and Plan (1) Delivery by emergency Is this a current diagnosis for this admission?: YesPlan: routine post op care progressive ambulation - Time Spent with Patient Time with patient: Less than 15 minutes Critical Time spent with patient: Less than 15 minutes Medications reviewed and adjusted accordingly: Yes - Disposition Anticipated Discharge: Home Within: within 24 hours
[2016-08-27] MEDS: PRENATAL VITAMIN W-O CA NO5/FE FUMARATE/FA CAPSULE PO SCH ×2 (09:35→10:39)
[2016-08-27] MEDS: DOCUSATE SODIUM 100 MG CAPSULE PO SCH ×2 (09:35→17:43)
[2016-08-27] MEDS ORDERED: DOCUSATE SODIUM 100 MG CAPSULE PO SCH (10:00)
[2016-08-27] MEDS: OXYCODONE-ACETAMINOPHEN 5-325 MG TABLET PO PRN ×3 (10:38→23:57)
[2016-08-27] MEDS ORDERED: FERROUS SULFATE 325 MG TABLET PO ONE (13:00)
--- NOTE | 2016-08-27 18:01 | L&D General Admission ---
General Admit Datetime Report Generated by CPN: 08/27/2016 18:00 INFORMATION Patient Age: 31 (07/22/2016 14:52:QS system process) EDC: 09/05/2016 00:00 (07/22/2016 14:54:Della Sahni RN) : 3 (07/22/2016 14:54:Sandra Jones RN) Para: 1 (08/23/2016 03:49:Kourtney Goddard RN) Term: 1 (07/22/2016 14:54:Sandra Jones RN) : 0 (07/22/2016 14:54:Sandra Jones RN) Induced Abortions: 1 (07/22/2016 14:54:Sandra Jones RN) Livin (07/22/2016 14:54:Sandra Jones RN) Cesareans: 0 (07/22/2016 14:54:Sandra Jones RN) VBACs: 0 (07/22/2016 14:54:Sandra Jones RN) Ectopic: 0 (07/22/2016 14:54:Sandra Jones RN) Multiple Births: 0 (07/22/2016 14:54:Sandra Jones RN) Baby, Number in Womb: 1 (08/23/2016 03:49:Kourtney Goddard RN) CARE Primary Computer Forensic Specialist[facility] (07/22/2016 14:54:Sandra Jones RN) Adequate Care: Yes (07/22/2016 14:54:Sandra Jones RN) Height (in): 63 (08/26/2016 23:41:QS system process) ALLERGIES Medication Allergy: No (07/22/2016 14:54:Sandra Jones RN) Medication Allergies: No Known Allergies (08/23/2016) (08/23/2016 02:09:QS system process) Latex Allergy: No Latex Allergies (07/22/2016 14:54:Sandra Jones RN) Food Allergies: none (07/22/2016 14:54:Sandra Jones RN) Environmental Allergies: none (07/22/2016 14:54:Sandra Jones RN) COMMUNICATION Primary Language: Setswana (07/22/2016 14:54:Sandra Jones RN) Medical Tx Preferred Language: Setswana (07/22/2016 14:54:Sandra Jnoes RN) Communication Barrier(s): None (07/22/2016 14:54:Sandra Jones RN) DEMOGRAPHICS Address: [address] [place] [id number] (07/22/2016 14:52:QS system process) Zipcode: [address] (07/22/2016 14:52:QS system process) Home (08/26/2016 10:06:QS system process) Work (08/26/2016 10:06:QS system process) SSN: [id number] (07/22/2016 14:52:QS system process) Next of Kin Name: MAYA DAVENPORT (08/26/2016 10:06:QS system process) Next of Kin (08/26/2016 10:06:QS system process) Next of Kin Relationship: OR (08/26/2016 10:06:QS system process) Date of : 1985 (07/22/2016 14:52:QS system process) Marital Status: Legally (07/22/2016 14:52:QS system process) Sex: Female (07/22/2016 14:52:QS system process) Race: (07/22/2016 14:52:QS system process) Ethnicity: Non- or (07/22/2016 14:52:QS system process) Zoroastrianism: Gnosticist (07/22/2016 14:52:QS system process) DRUG AND ALCOHOL USE Alcohol: No (07/22/2016 14:54:Sandra Jones RN) Cigarettes: Never Smoker. [id number] (07/22/2016 14:54:Sandra Jones RN) Marijuana: No (07/22/2016 14:54:Sandra Jones RN) Cocaine: No (07/22/2016 14:54:Sandra Jones RN) Other Illicit Drugs: No (07/22/2016 14:54:Sandra Jones RN) VACCINE HISTORY Influenza Vaccine: No (07/22/2016 14:54:Nevin Gordon RN) Pneumococcal Vaccine: No (07/22/2016 14:54:Nevin Gordon RN) Tetanus Vaccine: No (07/22/2016 14:54:Sandra Jones RN) Tdap Vaccine: No (07/22/2016 14:54:Sandra Jones RN) Hepatitis B Vaccine: No (07/22/2016 14:54:Nevin Gordon RN) Fabric Finisher: [facility] (07/22/2016 14:54:Sandra Jones RN) Feeding Preference: Formula (07/22/2016 14:54:Sandra Jones RN) Benefit of Breast Feed Discussed: Yes (07/22/2016 14:54:Nevin Gordon RN) Circumcision: Yes (07/22/2016 14:54:Nevin Grodon RN) Classes Attended: No (07/22/2016 14:54:Nevin Gordon RN) Tubal Ligation: No (07/22/2016 14:54:Nevin Gordon RN) Tubal Authorization Signed: N/A (07/22/2016 14:54:Nevin Gordon RN) Consent: N/A (07/22/2016 14:54:Nevin Gordon RN) Consent Signed: N/A (07/22/2016 14:54:Nevin Gordon RN) Pain Management Plans: Epidural (07/22/2016 14:54:Sandra Jones RN) Plans for Labor and Delivery: None (07/22/2016 14:54:Sandra Jones RN) Support Person: Maya (07/22/2016 14:54:Nevin Gordon RN) Support Person Relationship: Significant Other (07/22/2016 14:54:Nevin Gordon RN) Cultural/Spritual Practice: No (07/22/2016 14:54:Nevin Gordon RN) Spir/Cult Dietary Needs: No (07/22/2016 14:54:Nevin Gordon RN) LIVING SITUATION/DISCHARGE PLAN Living Arrangements: House (07/22/2016 14:54:Nevin Gordon RN) Adequate Access to:: Electric; Heat; Refrigeration; Plumbing/Running water; Phone; Transportation (07/22/2016 14:54:Nevin Gordon RN) WIC Program: Yes (07/22/2016 14:54:Nevin Gordon RN) Discharge Green Lumber Grader Person: Maya (07/22/2016 14:54:Nevin Gordon RN) Person to Help after Discharge: Maya (07/22/2016 14:54:Nevin Gordon RN) Currently Using Commun Resources: No (07/22/2016 14:54:Nevin Gordon RN) Outside Agency/Systems Coordinator: Yes (07/22/2016 14:54:Nevin Gordon RN) Car Seat for Discharge: Yes (07/22/2016 14:54:Nevin Gordon RN) Adoption Requested: No (07/22/2016 14:54:Nevin Gordon RN) Pt Contact w/infant Post : N/A (07/22/2016 14:54:Nevin Gordon RN) LABS Blood Type: A Positive (07/22/2016 14:54:Kourtney Goddard RN) Antibody Screen: Negative (07/22/2016 14:54:Kourtney Goddard RN) Rho(G) this : Not Applicable (Annotations: Data stored by CPN on behalf of user) (07/22/2016 14:54:Kourtney Goddard RN) Hemoglobin: 9.3 L (08/27/2016 06:41:QS system process) Hematocrit: 28.5 L (08/27/2016 06:41:QS system process) MCV: 88 (08/27/2016 06:41:QS system process) Group Beta Strep: Negative (07/22/2016 14:54:Kourtney Goddard RN) Gonorrhea: Negative (07/22/2016 14:54:Kourtney Goddard RN) Chlamydia: Negative (07/22/2016 14:54:Kourtney Goddard RN) RPR/VDRL: Nonreactive (07/22/2016 14:54:Sandra Jones RN) HIV Results: Negative (07/22/2016 14:54:Kourtney Goddard RN) Hepatitis B: Negative (07/22/2016 14:54:Kourtney Goddard RN) Rubella: Immune (07/22/2016 14:54:Kourtney Goddard RN) Varicella: Non Susceptible (07/22/2016 14:54:Kourtney Goddard RN) OB/PREVIOUS HISTORY Previous Procedures: Ultrasound; NST (07/22/2016 14:54:Nevin Gordon RN) Current Procedures: Ultrasound; NST (07/22/2016 14:54:Nevin Gordon RN) History of Previous : No (07/22/2016 14:54:Sandra Jones RN) History of Gestational Diabetes: No (07/22/2016 14:54:Sandra Jones RN) History of PIH: Yes (07/22/2016 14:54:Sanrda Jones RN) History of Incompetent Cervix: No (07/22/2016 14:54:Sandra Jones RN) History of Placenta Previa/Abrup: No (07/22/2016 14:54:Sandra Jones RN) History of Macrosomia: No (07/22/2016 14:54:Sandra Jones RN) History of IUGR: No (07/22/2016 14:54:Sandra Jones RN) History of Hemorrhage: No (07/22/2016 14:54:Sandra Jones RN) History of Loss/Stillborn: No (07/22/2016 14:54:Sandra Jones RN) History of : No (07/22/2016 14:54:Sandra Jones RN) History of D (Rh) Sensitization: No (07/22/2016 14:54:Sandra Jones RN) History Recurrent Loss/Stillborn: No (07/22/2016 14:54:Sandra Jones RN) History Depression/PP Depression: No (07/22/2016 14:54:Sandra Jones RN) History of Uterine Anomaly/KAMRAN: No (07/22/2016 14:54:Sandra Jones RN) History of Infertility: No (07/22/2016 14:54:Sandra Jones RN) History of ART Treatment: No (07/22/2016 14:54:Sandra Jones, RN) History of KAMRAN: No (07/22/2016 14:54:Sandra Jones RN) Comments Obstetrical History: G1 - EAB (2005) G2 - at 38 wks (2010) - IOl fo pre-eclampsia (07/22/2016 14:54:Nevin Gordon RN) MEDICAL HISTORY Med Hx Diabetes: No (07/22/2016 14:54:Sandra Jones RN) Med Hx Hypertension: No (07/22/2016 14:54:Sandra Jones RN) Med Hx Heart Disease: No (07/22/2016 14:54:Sandra Jones RN) Med Hx Autoimmune Disorder: No (07/22/2016 14:54:Sandra Jones, RN) Med Hx Kidney Disease/UTI: No (07/22/2016 14:54:Sandra Jones RN) Med Hx Neurologic/Epilepsy: No (07/22/2016 14:54:Sandra Jones, RN) Med Hx Psychiatric Disorders: No (07/22/2016 14:54:Sandra Jones, RN) Med Hx Hepatitis/Liver Disease: No (07/22/2016 14:54:Sandra Jones, FABRIZIO) Med Hx Varicosities/Phlebitis: No (07/22/2016 14:54:Sandra Jones, RN) Med Hx Thyroid Dysfunction: No (07/22/2016 14:54:Sandra Jones, RN) Med Hx Trauma/Violence: No (07/22/2016 14:54:Sandra Jones RN) Med Hx Blood Transfusion: No (07/22/2016 14:54:Sandra Jones RN) Med Hx Pulmonary (Asthma,TB): No (07/22/2016 14:54:Sandra Jones RN) Med Hx Breast: No (07/22/2016 14:54:Sandra Jones RN) Med Hx MASS COMMUNICATIONS INSTRUCTOR Surgery: No (07/22/2016 14:54:Sandra Jones RN) Med Hx Hospitalization/Surgery: No (07/22/2016 14:54:Sandra Jones RN) Med Hx Anesthetic Complications: No (07/22/2016 14:54:Sandra Jones RN) Med Hx Abnormal Pap Smear: Yes (07/22/2016 14:54:Nevin Gordon RN) Other Medical Diseases: No (07/22/2016 14:54:Sandra Jones RN) Med Hx Significant Family Hx: No (07/22/2016 14:54:Sandra Jones RN) Details of Med/Surg Hx: x 1 (07/22/2016 14:54:Nevin Gordon RN) INFECTIOUS HISTORY Inf Hx Gonorrhea: No (07/22/2016 14:54:Sandra Jones RN) Inf Hx Chlamydia: No (07/22/2016 14:54:Sandra Jones RN) Inf Hx Syphilis: No (07/22/2016 14:54:Sandra Jones RN) Inf Hx HIV/AIDS: No (07/22/2016 14:54:Sandra Jones RN) Inf Hx Human Papilloma Virus: No (07/22/2016 14:54:Sandra Jones RN) Inf Hx Pt/Partner Genital Herpes: No (07/22/2016 14:54:Sandra Jones RN) Inf Hx Tuberculosis/Exposure: No (07/22/2016 14:54:Sandra Jones RN) Inf Hx Hepatitis B,C: No (07/22/2016 14:54:Sandra Jones RN) Inf Hx Rash or Viral Illness: No (07/22/2016 14:54:Sandra Jones RN) Details of Infectious Hx: colpo 2006 (07/22/2016 14:54:Nevin Gordon RN) GENETIC HISTORY Gen Hx Age >=35 at [place]: No (07/22/2016 14:54:Sandra Jones RN) Gen Hx Thalassemia: No (07/22/2016 14:54:Sandra Jones RN) Gen Hx Congenital Heart Defect: No (07/22/2016 14:54:Sandra Jones RN) Gen Hx Neural Tube Defect: No (07/22/2016 14:54:Sandra Jones RN) Gen Hx Down's Syndrome: No (07/22/2016 14:54:Sandra Jones RN) Gen Hx Shmuel-Sachs: No (07/22/2016 14:54:Sandra Jones RN) Gen Hx Jorge: No (07/22/2016 14:54:Sandra Jones RN) Gen Hx Familial Dysautonomia: No (07/22/2016 14:54:Sandra Jones RN) Gen Hx Sickle Cell Disease/Trait: No (07/22/2016 14:54:Sandra Jones RN) Gen Hx Hemophilia/Blood Disorder: No (07/22/2016 14:54:Sandra Jones RN) Gen Hx Muscular Dystrophy: No (07/22/2016 14:54:Sandra Jones RN) Gen Hx Cystic Fibrosis: No (07/22/2016 14:54:Sandra Jones RN) Gen Hx Huntingtons Chorea: No (07/22/2016 14:54:Sandra Jones RN) Gen Hx Mental Retardation/Autism: No (07/22/2016 14:54:Sandra Jones RN) Gen Hx Tested for Fragile X: No (07/22/2016 14:54:Sandra Jones RN) Gen Hx Other Inher/Chromosomal: No (07/22/2016 14:54:Sandra Jones RN) Gen Hx Maternal Metabolic DO: No (07/22/2016 14:54:Sandra Jones RN) Gen Hx Pt Father or FOB Defect: No (07/22/2016 14:54:Sandra Jones RN) Gen Hx Other Genetic History: No (07/22/2016 14:54:Sandra Jones RN) Gen Hx Drugs/Meds since LMP: No (07/22/2016 14:54:Sandra Jones RN)
--- NOTE | 2016-08-27 18:01 | L&D Current Admission ---
Current Admit Datetime Report Generated by CPN: 08/27/2016 18:00 ADMISSION INFORMATION Current Admit Date/Time: 08/26/2016 12:45 (08/26/2016 10:16:Nevin Gordon RN) Reason for Admission: Onset of Labor (08/26/2016 10:16:Nevin Gordon RN) Chief Complaint: Contractions (08/26/2016 10:16:Nevin Gordon RN) Medications During : Ferrous Sulfate (Iron); Vitamin (08/26/2016 10:16:Nevin Gordon RN) EGA per Dates: 38.4 (08/26/2016 10:16:QS system process) Admitted From: Home (08/26/2016 10:16:Nevin Gordon RN) Reason for Induction: Not Applicable (08/26/2016 10:16:Nevin Gordon RN) Records Available: Yes (08/26/2016 10:16:Nevin Gordon RN) General Admission Information: Reviewed; Updated (08/26/2016 10:16:Nevin Gordon RN) General Admission Reviewed By: Jorge Gordon RN (08/26/2016 10:16:Nevin Gordon RN) BELONGINGS/ADVANCED DIRECTIVES Valuables/Personal Effects: Purse/Wallet; Cell Phone (08/26/2016 10:16:Nevin Gordon RN) Other Belongings: clothing (08/26/2016 10:16:Nevin Gordon RN) Disposition of Belongings: Kept with Patient (08/26/2016 10:16:Nevin Gordon RN) Advance Direct for Healthcare: No, and Wants No Information (08/26/2016 10:16:Nevin Gordon RN) Durable Power of Edge Baster: No (08/26/2016 10:16:Nevin Gordon RN) Living Will: No (08/26/2016 10:16:Nevin Gordon RN) Organ Donor: Yes (08/26/2016 10:16:Nevin Gordon RN) Pt Rights Information Given: Yes (08/26/2016 10:16:Nevin Gordon RN) Pt Understands Pt Rights: Yes (08/26/2016 10:16:Nevin Gordon RN) LEARNING ASSESSMENT Knowledge Level: Understands L_D Process; Understands Care Activities; Had Pre-Hospital Education; Understands Diagnosis (08/26/2016 10:16:Nevin Gordon RN) Barriers to Learning: None (08/26/2016 10:16:Nevin Gordon RN) Learning Readiness: Motivated (08/26/2016 10:16:Nevin Gordon RN) Learns Best By: 1 to 1 Instruction; Demonstration (08/26/2016 10:16:Nevin Gordon RN) Learning Needs: Labor and Delivery Process; Pain Management; Symptoms to Report; Treatment Plan; Medication; Diagnosis; Equipment (08/26/2016 10:16:Nevin Gordon RN) DOMESTIC VIOLANCE SCREENING Dom Viol Threatened/Hurt: No (08/26/2016 10:16:Nevin Gordon RN) Hx of Abuse/Neglect past 2yrs: No (08/26/2016 10:16:Nevin Gordon RN) Feel Unsafe Going Home: No (08/26/2016 10:16:Nevin Gordon RN) Addt'l Observ Indicating Abuse: No (08/26/2016 10:16:Nevin Gordon RN) Reason Unable to Complete Screen: N/A, Screen Completed (08/26/2016 10:16:Nevin Gordon RN) Considered Personal Harm/Suicide: No (08/26/2016 10:16:Nevin Gordon RN) NUTRITIONAL/FUNCTIONAL SCREENING Problem with Appetite >5 Days: No (08/26/2016 10:16:Nevin Gordon RN) Chew/Swallow Difficulties: No (08/26/2016 10:16:Nevin Gordon RN) Inappropriate Wt Gain/Loss: No (08/26/2016 10:16:Nevin Gordon RN) Presence Skin Breakdown/Ulcer: No (08/26/2016 10:16:Nevin Gordon RN) Special Diet: No (08/26/2016 10:16:Nevin Gordon RN) Pt Requests Venereal Disease Investigator Visit: No (08/26/2016 10:16:Nevin Gordon RN) Hx of Any of the Following?: N/A (08/26/2016 10:16:Nevin Gordon RN) New Diagnosis of: N/A (08/26/2016 10:16:Nevin Gordon RN) Requires Assist w/Ambulation: No (08/26/2016 10:16:Nevin Gordon RN) Uses Assist Device to Ambulate: No (08/26/2016 10:16:Nevin Gordon RN) Pt Requires Help w/ADL's: No (08/26/2016 10:16:Nevin Gordon RN)
[2016-08-27] MEDS ORDERED: HYDROMORPHONE HCL 2 MG TABLET PO PRN (19:21)
--- NOTE | 2016-08-28 06:01 | L&D General Admission ---
General Admit Datetime Report Generated by CPN: 08/28/2016 06:00 INFORMATION Patient Age: 31 (07/22/2016 14:52:QS system process) EDC: 09/05/2016 00:00 (07/22/2016 14:54:Della Sahni RN) : 3 (07/22/2016 14:54:Sandra Jones RN) Para: 1 (08/23/2016 03:49:Kourtney Goddard RN) Term: 1 (07/22/2016 14:54:Sandra Jones RN) : 0 (07/22/2016 14:54:Sandra Jones RN) Induced Abortions: 1 (07/22/2016 14:54:Sandra Jones RN) Livin (07/22/2016 14:54:Sandra Jones RN) Cesareans: 0 (07/22/2016 14:54:Sandra Jones RN) VBACs: 0 (07/22/2016 14:54:Sandra Jones RN) Ectopic: 0 (07/22/2016 14:54:Sandra Jones RN) Multiple Births: 0 (07/22/2016 14:54:Sandra Jones RN) Baby, Number in Womb: 1 (08/23/2016 03:49:Kourtney Goddard RN) CARE Primary Inside Account Executive[facility] (07/22/2016 14:54:Sandra Jones RN) Adequate Care: Yes (07/22/2016 14:54:Sandra Jnoes RN) Height (in): 63 (08/26/2016 23:41:QS system process) ALLERGIES Medication Allergy: No (07/22/2016 14:54:Sandra Jones RN) Medication Allergies: No Known Allergies (08/23/2016) (08/23/2016 02:09:QS system process) Latex Allergy: No Latex Allergies (07/22/2016 14:54:Sandra Jones RN) Food Allergies: none (07/22/2016 14:54:Sandra Jones RN) Environmental Allergies: none (07/22/2016 14:54:Sandra Jones RN) COMMUNICATION Primary Language: Ukrainian (07/22/2016 14:54:Sandra Jones RN) Medical Tx Preferred Language: Ukrainian (07/22/2016 14:54:Sandra Jones RN) Communication Barrier(s): None (07/22/2016 14:54:Sandra Jones RN) DEMOGRAPHICS Address: [address] [place] [id number] (07/22/2016 14:52:QS system process) Zipcode: [address] (07/22/2016 14:52:QS system process) Home (08/26/2016 10:06:QS system process) Work (08/26/2016 10:06:QS system process) SSN: [id number] (07/22/2016 14:52:QS system process) Next of Kin Name: MAAY DAVENPORT (08/26/2016 10:06:QS system process) Next of Kin (08/26/2016 10:06:QS system process) Next of Kin Relationship: OR (08/26/2016 10:06:QS system process) Date of : 1985 (07/22/2016 14:52:QS system process) Marital Status: Legally (07/22/2016 14:52:QS system process) Sex: Female (07/22/2016 14:52:QS system process) Race: (07/22/2016 14:52:QS system process) Ethnicity: Non- or (07/22/2016 14:52:QS system process) Sikh: Mormonism (07/22/2016 14:52:QS system process) DRUG AND ALCOHOL USE Alcohol: No (07/22/2016 14:54:Sandra Jones RN) Cigarettes: Never Smoker. [id number] (07/22/2016 14:54:Sandra Jones RN) Marijuana: No (07/22/2016 14:54:Sandra Jones RN) Cocaine: No (07/22/2016 14:54:Sandra Jones RN) Other Illicit Drugs: No (07/22/2016 14:54:Sandra Jones RN) VACCINE HISTORY Influenza Vaccine: No (07/22/2016 14:54:Nevin Gordon RN) Pneumococcal Vaccine: No (07/22/2016 14:54:Nevin Gordon RN) Tetanus Vaccine: No (07/22/2016 14:54:Sandra Jones RN) Tdap Vaccine: No (07/22/2016 14:54:Sandra Jones RN) Hepatitis B Vaccine: No (07/22/2016 14:54:Nevin Gordon RN) Facing Baster: [facility] (07/22/2016 14:54:Sandra Jones RN) Feeding Preference: Formula (07/22/2016 14:54:Sandra Jones RN) Benefit of Breast Feed Discussed: Yes (07/22/2016 14:54:Nevin Gordon RN) Circumcision: Yes (07/22/2016 14:54:Nevin Gordon RN) Classes Attended: No (07/22/2016 14:54:Nevin Gordon RN) Tubal Ligation: No (07/22/2016 14:54:Nevin Gordon RN) Tubal Authorization Signed: N/A (07/22/2016 14:54:Nevin Gordon RN) Consent: N/A (07/22/2016 14:54:Nevin Gordon RN) Consent Signed: N/A (07/22/2016 14:54:Nevin Gordon RN) Pain Management Plans: Epidural (07/22/2016 14:54:Sandra Jones RN) Plans for Labor and Delivery: None (07/22/2016 14:54:Sandra Jones RN) Support Person: Maya (07/22/2016 14:54:Nevin Gordon RN) Support Person Relationship: Significant Other (07/22/2016 14:54:Nevin Gordon RN) Cultural/Spritual Practice: No (07/22/2016 14:54:Nevin Gordon RN) Spir/Cult Dietary Needs: No (07/22/2016 14:54:Nevin Gordon RN) LIVING SITUATION/DISCHARGE PLAN Living Arrangements: House (07/22/2016 14:54:Nevin Gordon RN) Adequate Access to:: Electric; Heat; Refrigeration; Plumbing/Running water; Phone; Transportation (07/22/2016 14:54:Nevin Gordon RN) WIC Program: Yes (07/22/2016 14:54:Nevin Gordon RN) Discharge Managing Broker Person: Maya (07/22/2016 14:54:Nevin Gordon RN) Person to Help after Discharge: Maya (07/22/2016 14:54:Nevin Gordon RN) Currently Using Commun Resources: No (07/22/2016 14:54:Nevin Gordon RN) Outside Agency/Optimization Analyst: Yes (07/22/2016 14:54:Nevin Gordon RN) Car Seat for Discharge: Yes (07/22/2016 14:54:Nevin Gordon RN) Adoption Requested: No (07/22/2016 14:54:Nevin Gordon RN) Pt Contact w/infant Post : N/A (07/22/2016 14:54:Nevin Gordon RN) LABS Blood Type: A Positive (07/22/2016 14:54:Kourtney Goddard RN) Antibody Screen: Negative (07/22/2016 14:54:Kourtney Goddard RN) Rho(G) this : Not Applicable (Annotations: Data stored by CPN on behalf of user) (07/22/2016 14:54:Kourtney Goddard RN) Hemoglobin: 9.3 L (08/27/2016 06:41:QS system process) Hematocrit: 28.5 L (08/27/2016 06:41:QS system process) MCV: 88 (08/27/2016 06:41:QS system process) Group Beta Strep: Negative (07/22/2016 14:54:Kourtney Goddard RN) Gonorrhea: Negative (07/22/2016 14:54:Kourtney Goddard RN) Chlamydia: Negative (07/22/2016 14:54:Kourtney Goddard RN) RPR/VDRL: Nonreactive (07/22/2016 14:54:Sandra Jones RN) HIV Results: Negative (07/22/2016 14:54:Kourtney Goddard RN) Hepatitis B: Negative (07/22/2016 14:54:Kourtney Goddard RN) Rubella: Immune (07/22/2016 14:54:Kourtney Goddard RN) Varicella: Non Susceptible (07/22/2016 14:54:Kourtney Goddard RN) OB/PREVIOUS HISTORY Previous Procedures: Ultrasound; NST (07/22/2016 14:54:Nevin Gordon RN) Current Procedures: Ultrasound; NST (07/22/2016 14:54:Nevin Gordon RN) History of Previous : No (07/22/2016 14:54:Sandra Jones RN) History of Gestational Diabetes: No (07/22/2016 14:54:Sandra Jones RN) History of PIH: Yes (07/22/2016 14:54:Sandra Jones RN) History of Incompetent Cervix: No (07/22/2016 14:54:Sandra Jones RN) History of Placenta Previa/Abrup: No (07/22/2016 14:54:Sandra Jones RN) History of Macrosomia: No (07/22/2016 14:54:Sandra Jones RN) History of IUGR: No (07/22/2016 14:54:Sandra Jones RN) History of Hemorrhage: No (07/22/2016 14:54:Sandra Jones RN) History of Loss/Stillborn: No (07/22/2016 14:54:Sandra Jones RN) History of : No (07/22/2016 14:54:Sandra Jones RN) History of D (Rh) Sensitization: No (07/22/2016 14:54:Sandra Jones RN) History Recurrent Loss/Stillborn: No (07/22/2016 14:54:Sandra Jones RN) History Depression/PP Depression: No (07/22/2016 14:54:Sandra Jones RN) History of Uterine Anomaly/KAMRAN: No (07/22/2016 14:54:Sandra Jones RN) History of Infertility: No (07/22/2016 14:54:Sandra Jones RN) History of ART Treatment: No (07/22/2016 14:54:Sandra Jones, RN) History of KAMRAN: No (07/22/2016 14:54:Sandra Jones RN) Comments Obstetrical History: G1 - EAB (2005) G2 - at 38 wks (2010) - IOl fo pre-eclampsia (07/22/2016 14:54:Nevin Gordon RN) MEDICAL HISTORY Med Hx Diabetes: No (07/22/2016 14:54:Sandra Jones RN) Med Hx Hypertension: No (07/22/2016 14:54:Sandra Jones RN) Med Hx Heart Disease: No (07/22/2016 14:54:Sandra Jones RN) Med Hx Autoimmune Disorder: No (07/22/2016 14:54:Sandra Jones, RN) Med Hx Kidney Disease/UTI: No (07/22/2016 14:54:Sandra Jones RN) Med Hx Neurologic/Epilepsy: No (07/22/2016 14:54:Sandra Jones, RN) Med Hx Psychiatric Disorders: No (07/22/2016 14:54:Sandra Jones, RN) Med Hx Hepatitis/Liver Disease: No (07/22/2016 14:54:Sandra Jones, FABRIZIO) Med Hx Varicosities/Phlebitis: No (07/22/2016 14:54:Sandra Jones, RN) Med Hx Thyroid Dysfunction: No (07/22/2016 14:54:Sandra Jones, RN) Med Hx Trauma/Violence: No (07/22/2016 14:54:Sandra Jones RN) Med Hx Blood Transfusion: No (07/22/2016 14:54:Sandra Jones RN) Med Hx Pulmonary (Asthma,TB): No (07/22/2016 14:54:Sandra Jones RN) Med Hx Breast: No (07/22/2016 14:54:Sandra Jones RN) Med Hx GREEN COFFEE BLENDER Surgery: No (07/22/2016 14:54:Sandra Jones RN) Med Hx Hospitalization/Surgery: No (07/22/2016 14:54:Sandra Jones RN) Med Hx Anesthetic Complications: No (07/22/2016 14:54:Sandra Jones RN) Med Hx Abnormal Pap Smear: Yes (07/22/2016 14:54:Nevin Gordon RN) Other Medical Diseases: No (07/22/2016 14:54:Sandra Jones RN) Med Hx Significant Family Hx: No (07/22/2016 14:54:Sandra Jones RN) Details of Med/Surg Hx: x 1 (07/22/2016 14:54:Nevin Gordon RN) INFECTIOUS HISTORY Inf Hx Gonorrhea: No (07/22/2016 14:54:Sandra Jones RN) Inf Hx Chlamydia: No (07/22/2016 14:54:Sandra Jones RN) Inf Hx Syphilis: No (07/22/2016 14:54:Sandra Jones RN) Inf Hx HIV/AIDS: No (07/22/2016 14:54:Sandra Jones RN) Inf Hx Human Papilloma Virus: No (07/22/2016 14:54:Sandra Jones RN) Inf Hx Pt/Partner Genital Herpes: No (07/22/2016 14:54:Sandra Jones RN) Inf Hx Tuberculosis/Exposure: No (07/22/2016 14:54:Sandra Jones RN) Inf Hx Hepatitis B,C: No (07/22/2016 14:54:Sandra Jones RN) Inf Hx Rash or Viral Illness: No (07/22/2016 14:54:Sandra Jones RN) Details of Infectious Hx: colpo 2006 (07/22/2016 14:54:Nevin Gordon RN) GENETIC HISTORY Gen Hx Age >=35 at [place]: No (07/22/2016 14:54:Sandra Jones RN) Gen Hx Thalassemia: No (07/22/2016 14:54:Sandra Jones RN) Gen Hx Congenital Heart Defect: No (07/22/2016 14:54:Sandra Jones RN) Gen Hx Neural Tube Defect: No (07/22/2016 14:54:Sandra Jones RN) Gen Hx Down's Syndrome: No (07/22/2016 14:54:Sandra Jones RN) Gen Hx Shmuel-Sachs: No (07/22/2016 14:54:Sandra Jones RN) Gen Hx Jorge: No (07/22/2016 14:54:Sandra Jones RN) Gen Hx Familial Dysautonomia: No (07/22/2016 14:54:Sandra Jones RN) Gen Hx Sickle Cell Disease/Trait: No (07/22/2016 14:54:Sandra Jones RN) Gen Hx Hemophilia/Blood Disorder: No (07/22/2016 14:54:Sandra Jones RN) Gen Hx Muscular Dystrophy: No (07/22/2016 14:54:Sandra Jones RN) Gen Hx Cystic Fibrosis: No (07/22/2016 14:54:Sandra Jones RN) Gen Hx Huntingtons Chorea: No (07/22/2016 14:54:Sandra Jones RN) Gen Hx Mental Retardation/Autism: No (07/22/2016 14:54:Sandra Jones RN) Gen Hx Tested for Fragile X: No (07/22/2016 14:54:Sandra Jones RN) Gen Hx Other Inher/Chromosomal: No (07/22/2016 14:54:Sandra Jones RN) Gen Hx Maternal Metabolic DO: No (07/22/2016 14:54:Sandra Jones RN) Gen Hx Pt Father or FOB Defect: No (07/22/2016 14:54:Sandra Jones RN) Gen Hx Other Genetic History: No (07/22/2016 14:54:Sandra Jones RN) Gen Hx Drugs/Meds since LMP: No (07/22/2016 14:54:Sandra Jones RN)
--- NOTE | 2016-08-28 06:01 | L&D Current Admission ---
Current Admit Datetime Report Generated by CPN: 08/28/2016 06:00 ADMISSION INFORMATION Current Admit Date/Time: 08/26/2016 12:45 (08/26/2016 10:16:Nevin Gordon RN) Reason for Admission: Onset of Labor (08/26/2016 10:16:Nevin Gordon RN) Chief Complaint: Contractions (08/26/2016 10:16:Nevin Gordon RN) Medications During : Ferrous Sulfate (Iron); Vitamin (08/26/2016 10:16:Nevin Gordon RN) EGA per Dates: 38.4 (08/26/2016 10:16:QS system process) Admitted From: Home (08/26/2016 10:16:Nevin Gordon RN) Reason for Induction: Not Applicable (08/26/2016 10:16:Nevin Gordon RN) Records Available: Yes (08/26/2016 10:16:Nevin Gordon RN) General Admission Information: Reviewed; Updated (08/26/2016 10:16:Nevin Gordon RN) General Admission Reviewed By: Jorge Gordon RN (08/26/2016 10:16:Nevin Gordon RN) BELONGINGS/ADVANCED DIRECTIVES Valuables/Personal Effects: Purse/Wallet; Cell Phone (08/26/2016 10:16:Nevin Gordon RN) Other Belongings: clothing (08/26/2016 10:16:Nevin Gordon RN) Disposition of Belongings: Kept with Patient (08/26/2016 10:16:Nevin Gordon RN) Advance Direct for Healthcare: No, and Wants No Information (08/26/2016 10:16:Nevin Gordon RN) Durable Power of Refrigerated Cargo Clerk: No (08/26/2016 10:16:Nevin Gordon RN) Living Will: No (08/26/2016 10:16:Nevin Gordon RN) Organ Donor: Yes (08/26/2016 10:16:Nevin Gordon RN) Pt Rights Information Given: Yes (08/26/2016 10:16:Nevin Gordon RN) Pt Understands Pt Rights: Yes (08/26/2016 10:16:Nevin Gordon RN) LEARNING ASSESSMENT Knowledge Level: Understands L_D Process; Understands Care Activities; Had Pre-Hospital Education; Understands Diagnosis (08/26/2016 10:16:Nevin Gordon RN) Barriers to Learning: None (08/26/2016 10:16:Nevin Gordon RN) Learning Readiness: Motivated (08/26/2016 10:16:Nevin Gordon RN) Learns Best By: 1 to 1 Instruction; Demonstration (08/26/2016 10:16:Nevin Gordon RN) Learning Needs: Labor and Delivery Process; Pain Management; Symptoms to Report; Treatment Plan; Medication; Diagnosis; Equipment (08/26/2016 10:16:Nevin Gordon RN) DOMESTIC VIOLANCE SCREENING Dom Viol Threatened/Hurt: No (08/26/2016 10:16:Nevin Gordon RN) Hx of Abuse/Neglect past 2yrs: No (08/26/2016 10:16:Nevin Gordon RN) Feel Unsafe Going Home: No (08/26/2016 10:16:Nevin Gordon RN) Addt'l Observ Indicating Abuse: No (08/26/2016 10:16:Nevin Gordon RN) Reason Unable to Complete Screen: N/A, Screen Completed (08/26/2016 10:16:Nevin Gordon RN) Considered Personal Harm/Suicide: No (08/26/2016 10:16:Nevin Gordon RN) NUTRITIONAL/FUNCTIONAL SCREENING Problem with Appetite >5 Days: No (08/26/2016 10:16:Nevin Gordon RN) Chew/Swallow Difficulties: No (08/26/2016 10:16:Nevin Gordon RN) Inappropriate Wt Gain/Loss: No (08/26/2016 10:16:Nevin Gordon RN) Presence Skin Breakdown/Ulcer: No (08/26/2016 10:16:Nevin Gordon RN) Special Diet: No (08/26/2016 10:16:Nevin Gordon RN) Pt Requests Instructor Looping Visit: No (08/26/2016 10:16:Nevin Gordon RN) Hx of Any of the Following?: N/A (08/26/2016 10:16:Nevin Gordon RN) New Diagnosis of: N/A (08/26/2016 10:16:Nevin Gordon RN) Requires Assist w/Ambulation: No (08/26/2016 10:16:Nevin Gordon RN) Uses Assist Device to Ambulate: No (08/26/2016 10:16:Nevin Gordon RN) Pt Requires Help w/ADL's: No (08/26/2016 10:16:Nevin Gordon RN)
--- NOTE | 2016-08-28 06:16 | L&D Care Plan ---
LD CARE PLANS Datetime Report Generated by CPN: 08/28/2016 06:15 Datetime: 08/26/2016 10:49 State: Risk For (Nevin Gordon RN) Related To: Labor and Delivery Process; Treatment and Procedures (Nevin Gordon RN) Goal(s): Patients Pain will be Assessed and Managed; Patient will Verbalize Adequate Relief of Pain or the Ability to [place] with Current Pain (Nevin Gordon RN) Interventions: Assess Pain Severity on Scale of 0 (None) to 5 (Severe); Assess Type, Location and Intensity of Pain Each Time Client Reports Discomfort and Notify Provider if Unusal Pain Develops; Encourage Proper Breathing and Relaxation Techniques; Offer Alternatives Such as Repositioning, Calm Environment, Massages, Diversional Activities, Ice Pack, Splinting, and Ambulation; Administer Analgesics as Ordered; Assist with Epidural Placement as Appropriate; Evaluate Therapeutic Effectiveness of Medication and Treatments (Nevin Gordon RN) Outcome: Patient will Report Absence or Relief of Pain Consistent with Established Pain Goal (Nevin Gordon RN) Status: Ongoing (Nevin Gordon RN) Outcome: Patient will have a Decrease in Signs and Symptoms of Discomfort (Nevin Gordon RN) Status: Ongoing (Nevin Gordon RN) Outcome: Pain will be Controlled During Procedures (Nevin Gordon RN) Status: Ongoing (Nevin Gordon RN) State: Risk For (Nevin Gordon RN) Related To: Labor and Delivery Process; Medical Interventions (Nevin Gordon RN) Goal(s): Patient will have Decreased Anxiety and be able to Function at Acceptable Levels (Nevin Gordon RN) Interventions: Assess Verbal and Nonverbal Behavioral Indicators of Anxiety; Provide Theraputic Touch for the Patient; Explain to Patient, Using a Calm Reassuring Approach and Nonmedical Terms, All Activities, Procedures, and Concerns; Instruct Patient and Family about Post Discharge Care, Limitations, Symptoms to Report and Resources Available (Nevin Gordon RN) Outcome: Patient will Identify, Verbalize and Demonstrate Techniques to Control Anxiety (Nevin Gordon RN) Status: Ongoing (Nevin Gordon RN) Outcome: Patient's Posture, Facial Expressions, Gestures and Activity Level will Reflect Decreased Anxiety (Nevin Gordon RN) Status: Ongoing (Nevin Gordon RN) Outcome: Patient will Verbalize a Sense of Control and/or Acceptance of the Situation (Nevin Gordon RN) Status: Ongoing (Nevin Gordon RN) Outcome: Patient will Identify and Utilize Support Person (Nevin Gordon RN) Status: Ongoing (Nevin Gordon RN) State: Risk For (Nevin Gordon RN) Related To: Labor and Delivery Process; Impending Alterations in Family Dynamics (Nevin Gordon RN) Goal(s): Patient will Accurately Verbalize Understanding of Plan of Care and Treatment; Patient and Family will Accurately Verbalize Understanding of the Disease Process (Nevin Gordon RN) Interventions: Assess Motivation and Willingness of Patient/Family to Learn; Assess Preferred Learning Mode: One to One Instruction, Reading, Videos, Group Discussion or Demonstration; Assess Barriers to Learning: Pain, Emotional State, Language Barrier, Cognitive Impairment, Visual or Hearing Deficits; Assess Patient and Family Knowledge of Disease Process, Medications and Treatment; Discuss Therapy and/or Treatment Options, Describe Rationale Behind Management, Therapy and Treatment Recommendations; Instruct Patient and Family on Signs and Symptoms to Report; Instruct Patient and Family on Medication Effects and Side Effects; Provide Appropriate and Timely Education Using Multiple Techniques; Provide Patient and Family with Support Group Information and Resources; Give Clear and Thorough Explanations and Demonstrations (Nevin Gordon RN) Outcome: Patient and Family will Verbalize Understanding of Condition, Treatment and Signs and Symptoms to Report (Nevin Gordon RN) Status: Ongoing (Nevin Gordon RN) Outcome: Patient will Identify Perceived Learning Needs and Express Motivation to Learn (Nevin Gordon RN) Status: Ongoing (Nevin Gordon RN) Outcome: Patient will Verbalize Understanding of Desired Content, and/or Performs Desired Skill Prior to Discharge (Nevin Gordon RN) Status: Ongoing (Nevin Gordon RN) State: Risk For (Nevin Gordon RN) Related To: Invasive Procedures (Nevin Gordon RN) Goal(s): The Patient will be Free of Infection, Vital Signs Stable and Lab Work within Normal Parameters (Nevin Gordon RN) Interventions: Instruct and Reinforce Proper Handwashing, Hygiene, and Care Techniques to Patient and Family; Monitor Vital Signs; Monitor Patient for the Following Signs of Infection: Fever, Abdominal Tenderness, Unusual Discharge; Monitor Aminiotic Fluid, Urine and Lochia for Color and Odor; Observe Wounds, Incisions and Invasive Line Sites for Redness, Drainage and Edema; Assess IV Sites per Hospital Policy; Monitor Lab and Test Results and Notify Provider of Abnormal Findings; Assess Nutritional Status and Promote Good Nutrition (Nevin Gordon RN) Outcome: Patient will Remain Free of Infection (Nevin Gordon RN) Status: Ongoing (Nevin Gordon RN) Outcome: Infection will be Recognized Early to Allow for Prompt Treatment (Nevin Gordon RN) Status: Ongoing (Nevin Gordon RN) Outcome: Patient will have Vital Signs Within Expected Range (Nevin Gordon RN) Status: Ongoing (Nevin Gordon RN)
[2016-08-28 06:45] LABS: HEMATOCRIT 27.3 % (36.0-47.0); HEMOGLOBIN 8.9 g/dL (12.0-15.5); HGB HCT DIFFERENCE -0.6; MEAN CORPUSCULAR HEMOGLOBIN 29.1 pg (27.0-33.4); MEAN CORPUSCULAR HGB CONC 32.6 g/dL (32.0-36.0); MEAN CORPUSCULAR VOLUME 89 fl (80-97); RED BLOOD COUNT 3.06 10^6/uL (3.72-5.28); RED CELL DISTRIBUTION WIDTH 14.7 % (11.5-14.0); WHITE BLOOD COUNT 13.4 10^3/uL (4.0-10.5)
[2016-08-28] MEDS: OXYCODONE-ACETAMINOPHEN 5-325 MG TABLET PO PRN ×2 (08:07→16:57)
--- NOTE | 2016-08-28 08:56 | PDOC PROGRESS REPORT ---
Subjective-OB Subjective: Post Delivery Day: 31 year old. Denies any needs at this time. Ready to go home. Physical Exam (OB) Vital Signs: Temp Pulse Resp BP Pulse Ox 98.0 F 74 14 101/59 L 100 08/28/16 01:16 08/28/16 01:16 08/28/16 01:16 08/28/16 01:16 08/28/16 01:16 Intake & Output 08/27/16 08/28/16 08/29/16 06:59 06:59 06:59 Intake Total 1160 950 Output Total 1350 650 Balance -190 300 Weight 68.1 kg - PIH/Pre-Eclampsia Headache: Absent Epigastric Pain: No - Dressing Removed: No Incision: Well Approximated - Lochia Lochia Amount: Scant < 10 ml Lochia Color: Rubra/Red - Abdomen Description: Soft, Round Hernia Present: No Bowel Sounds: Normoactive Flatus Presence: Present Stool: No Fundal Description: Firm, Midline Fundal Height: u/u - u/2 Objective-Diagnostic Laboratory: 08/28/16 06:28 08/28/16 06:28 WBC 13.4 H RBC 3.06 L Hgb 8.9 L Hct 27.3 L MCV 89 MCH 29.1 MCHC 32.6 RDW 14.7 H Plt Count 87 L Assessment and Plan(PN) - Time Spent with Patient Medications reviewed and adjusted accordingly: Yes - Disposition Anticipated Discharge: Home
--- NOTE | 2016-08-28 09:08 | PDOC DISCHARGE SUMMARY ---
Final Diagnosis Discharge Date: 08/28/16 - Final Diagnosis (1) CPD (cephalo-pelvic disproportion) Is this a current diagnosis for this admission?: Yes (2) Delivery by emergency Is this a current diagnosis for this admission?: Yes (3) Non-reassuring electronic monitoring tracing Is this a current diagnosis for this admission?: Yes (4) Is this a current diagnosis for this admission?: Yes Discharge Data - Discharge Medication Home Medications: Iron 1 tab PO DAILY 07/22/16 Pnv No.122/Iron/Folic Acid [ Multi Tablet] 1 tab PO DAILY 08/23/16 Docusate Sodium [Colace 100 mg Capsule] 100 mg PO BID #30 capsule 08/28/16 Oxycodone HCl/Acetaminophen [Percocet 5-325 mg Tablet] 1 tab PO Q4HP PRN #20 tablet 08/28/16 Gestational Age: 38.4 wks Reason(s) for Admission: Onset of Labor Procedures: Ultrasound Intrapartum Procedure(s): : Low Cervical, Transverse - Wells Data Baby 1 Male at 1 minute: 9 at 5 minutes: 9 Weight: 3.799 kg Home with Mother: Yes Complications: No - Diagnosis Test Laboratory: Temp Pulse Resp BP Pulse Ox 98.0 F 74 14 101/59 L 100 08/28/16 01:16 08/28/16 01:16 08/28/16 01:16 08/28/16 01:16 08/28/16 01:16 08/26/16 08/26/16 08/27/16 10:25 12:56 06:41 RBC 4.05 3.23 L Hgb 11.8 L 9.3 L D Hct 36.0 28.5 L Urine Opiates Screen NEGATIVE 08/28/16 06:28 RBC 3.06 L Hgb 8.9 L Hct 27.3 L Urine Opiates Screen - Discharge information/Instructions Discharge Activity: Activity As Tolerated, Balance Activity w/Rest, No Lifting Over 10 Pounds, No Lifting/Push/Pulling, Non-Ambulatory Child, Pelvic Rest, Slowly Increase Activity, No tub bath Discharge Diet: Regular Disposition: HOME, SELF-CARE Follow up with: [facility] in: 1, Weeks
[2016-08-28] MEDS ORDERED: INFLUENZA ADLT QUAD (36MOS+) 2016-17 VAC 0.5 ML SYR IM PRN (09:13)
[2016-08-28] MEDS ORDERED: FERROUS SULFATE 325 MG TABLET PO SCH (10:00)
[2016-08-28] MEDS: PRENATAL VITAMIN W-O CA NO5/FE FUMARATE/FA CAPSULE PO SCH ×2 (10:37)
[2016-08-28] MEDS: DOCUSATE SODIUM 100 MG CAPSULE PO SCH ×2 (10:43→16:56)
[2016-08-28 15:46] VITALS: BP 102/57
--- NOTE | 2016-08-28 17:48 | PDOC CONSULTATION ---
Consultation Consult Date: 08/28/16 Attending physician:: ABRAHAN AVILES Consult reason:: Thrombocytopenia History of Present Illness Admission Date/PCP: 08/26/16 12:45 STEPHEN FARRELL MD Patient complains of: Thrombocytopenia History of Present Illness: CLIFF MEHTA is a 31 year old female with recent thrombocytopenia. Today her platelet count is in the 80,000 range, in review of the peripheral smear there are giant cells noted. She remembers to have had thrombocytopenia in past pregnancies. She feels like it resolved. But we don't really have record of that. She is not having any bleeding, no bruising and she's had overall an uneventful . She feels fairly good today. Past Medical History Medical History: None Past Surgical History Past Surgical History: Reports: None Social History Information Source: Patient Lives with: Family Smoking Status: Never Smoker Drugs: None - Advance Directive Resuscitation Status: Full Code Family History Family History: None Parental Family History Reviewed: Yes Children Family History Reviewed: Yes Sibling(s) Family History Reviewed.: Yes Medication/Allergy Home Medications: Iron 1 tab PO DAILY 07/22/16 Pnv No.122/Iron/Folic Acid [ Multi Tablet] 1 tab PO DAILY 08/23/16 Docusate Sodium [Colace 100 mg Capsule] 100 mg PO BID #30 capsule 08/28/16 Oxycodone HCl/Acetaminophen [Percocet 5-325 mg Tablet] 1 tab PO Q4HP PRN #20 tablet 08/28/16 Allergies/Adverse Reactions: No Known Allergies Allergy (Verified 08/23/16 02:09) Review of Systems Constitutional: ABSENT: chills, fever(s), headache(s), weight gain, weight loss Eyes: ABSENT: visual disturbances Ears: ABSENT: hearing changes Cardiovascular: ABSENT: chest pain, dyspnea on exertion, edema, orthropnea, palpitations Respiratory: ABSENT: cough, hemoptysis Gastrointestinal: ABSENT: abdominal pain, constipation, diarrhea, hematemesis, hematochezia, nausea, vomiting Genitourinary: ABSENT: dysuria, hematuria Musculoskeletal: ABSENT: joint swelling Integumentary: ABSENT: rash, wounds Neurological: ABSENT: abnormal gait, abnormal speech, confusion, dizziness, focal weakness, syncope Psychiatric: ABSENT: anxiety, depression, homidical ideation, suicidal ideation Endocrine: ABSENT: cold intolerance, heat intolerance, polydipsia, polyuria Hematologic/Lymphatic: ABSENT: easy bleeding, easy bruising Physical Exam Vital Signs: Temp Pulse Resp BP Pulse Ox 98.3 F 77 16 102/57 L 98 08/28/16 15:26 08/28/16 15:26 08/28/16 15:26 08/28/16 15:26 08/28/16 15:26 Intake & Output 08/27/16 08/28/16 08/29/16 06:59 06:59 06:59 Intake Total 1160 950 Output Total 1350 650 Balance -190 300 Weight 68.1 kg Baby 1 Male 3.799 kg General appearance: PRESENT: no acute distress, well-developed, well-nourished Head exam: PRESENT: atraumatic, normocephalic Eye exam: PRESENT: conjunctiva pink, EOMI, PERRLA. ABSENT: scleral icterus Ear exam: PRESENT: normal external ear exam Mouth exam: PRESENT: moist, tongue midline Neck exam: ABSENT: carotid bruit, JVD, lymphadenopathy, thyromegaly Respiratory exam: PRESENT: clear to auscultation ruben. ABSENT: rales, rhonchi, wheezes Cardiovascular exam: PRESENT: RRR. ABSENT: diastolic murmur, rubs, systolic murmur Pulses: PRESENT: normal dorsalis pedis pul Vascular exam: PRESENT: normal capillary refill GI/Abdominal exam: PRESENT: normal bowel sounds, soft. ABSENT: distended, guarding, mass, organolmegaly, rebound, tenderness Rectal exam: PRESENT: deferred Extremities exam: PRESENT: full ROM. ABSENT: calf tenderness, clubbing, pedal edema Neurological exam: PRESENT: alert, awake, oriented to person, oriented to place , oriented to time, oriented to situation, CN II-XII grossly intact. ABSENT: motor sensory deficit Psychiatric exam: PRESENT: appropriate affect, normal mood. ABSENT: homicidal ideation, suicidal ideation Skin exam: PRESENT: dry, intact, warm. ABSENT: cyanosis, rash Results Laboratory Results: 08/28/16 06:28 08/28/16 06:28 WBC 13.4 H RBC 3.06 L Hgb 8.9 L Hct 27.3 L MCV 89 MCH 29.1 MCHC 32.6 RDW 14.7 H Plt Count 87 L Assessment & Plan - Diagnosis (1) Thrombocytopenia Is this a current diagnosis for this admission?: YesPlan: Unknown cause, could be related, alternatively could be ITP. We will need to monitor her counts as an outpatient. At this point no intervention needed. She is not actively bleeding. We will follow her up next week and do weekly CBCs to see the resolution of the counts. If the counts don't resolve in a month's time, it's probably going to be ITP and we will monitor her thereafter. - Time Time Spent: 50 to 70 Minutes Critical Time spent with patient: 25-34 minutes Anticipated discharge: Home
== END 2016-08-28 18:18 | disposition home or self-care (01) | DRG 775 ==
LOC: LC 10:06 → LR 12:45 → 2S 21:19 → LR 21:32 → 2S 22:45
PROVIDERS: ADMIT Obstetrics & Gynecology; ATTEND Obstetrics & Gynecology
PROC: 10E0XZZ Delivery of Products of Conception, External Approach (ICD-10-PCS; principal; 2016-08-26)
PROC: 4A1HXCZ Monitoring of Products of Conception, Cardiac Rate, External Approach (ICD-10-PCS; 2016-08-26)
DX: O65.9 Obstructed labor due to maternal pelvic abnormality, unspecified (principal); O99.12 Other diseases of the blood and blood-forming organs and certain disorders involving the immune mechanism complicating childbirth; O76 Abnormality in fetal heart rate and rhythm complicating labor and delivery; O66.5 Attempted application of vacuum extractor and forceps; D69.6 Thrombocytopenia, unspecified; Z3A.38 38 weeks gestation of pregnancy; Z37.0 Single live birth
CPT/HCPCS: 1961; 36415; 80307; 81005; 84112; 85025; 85027; 86592; 86850; 86900; 86901; 90686; 90715; 94799; J0690; J1170; J1885; J2175; J2370; J2590; J3010; J3490; J7120